=== PATIENT | female | born 1955 | race Caucasian/White ===

== ENCOUNTER 2017-03-30 03:31 | Emergency (ER) | payer MEDICAID ==
[~2017-03-30] VITALS: Ht 154.9 cm; Wt 49.9 kg
[~2017-03-30 03:31] MED LIST: ATEN50TA; DOCU-137; GABA-497; HYDR25TA4; LEVO50TA7; LOSA50TA6; MORP1TAB13; TEMA30CA; ZOLP5TAB5
[2017-03-30 04:04] VITALS: BP 137/76
[2017-03-30] MEDS ORDERED: ONDANSETRON HCL 4 MG/2 ML VIAL IV ONE (04:30)
[2017-03-30] MEDS ORDERED: HYDROmorphone HCL 2 MG/ML VL IV ONE (04:30)
[2017-03-30 05:34] LABS: Basophils # (auto) 0.1 uL; Basophils % (auto) 0.4 % (0.0-2.0); Eosinophils # (auto) 0.1 uL; Eosinophils % (auto) 0.6 % (0.0-7.0); Hematocrit 50.4 % (36.0-46.0); Hemoglobin 16.7 g/dL (12.2-16.2); Lymphocytes # (auto) 1.3 uL; Mean Corpuscular Hemoglobin 30.6 pg (28.0-32.0); Mean Corpuscular Hgb Conc. 33.1 g/dL (32.0-36.0); Mean Corpuscular Volume 92.4 fL (80.0-100.0); Mean Platelet Volume 8.1 fL (7.4-10.4); Monocytes # (auto) 0.8 uL; Monocytes % (auto) 5.6 % (0.0-12.0); Neutrophils # (auto) 12.5 uL; Neutrophils % (auto) 84.4 % (37.0-80.0); Platelet Count (auto) 361 10^3/uL (140-450); Red Cell Distribution Width 15.6 % (11.6-16.0); White Blood Cell 14.8 10^3/uL (4.4-10.8)
[2017-03-30 06:00] LABS: Albumin 2.8 g/dL (3.4-5.0); Anion Gap 12 (5-15); Aspartate Aminotransferase 13 U/L (15-37); BUN/Creatinine Ratio 27.4; Blood Urea Nitrogen 20 mg/dL (7-18); Calcium 7.9 mg/dL (8.5-10.1); Carbon Dioxide 26 mmol/L (21-32); Chloride 100 mmol/L (98-107); GFR African American 104 mL/min; GFR Non-African American 86 mL/min; Glucose 105 mg/dL (74-106); Magnesium 2.1 mg/dL (1.6-2.6); Potassium 3.8 mmol/L (3.5-5.1); Sodium 138 mmol/L (136-145)
[2017-03-30 06:02] LABS: Alkaline Phosphatase 65 U/L (45-117); Bilirubin, Total 0.2 mg/dL (0.2-1.0); Total Protein 6.7 g/dL (6.4-8.2)
[2017-03-30 06:11] LABS: B-Type Natriuretic Peptide 66.77 pg/mL (0-100)
[2017-03-30 06:15] LABS: Temperature: 21.1 C (20.0-25.0)
== END 2017-03-30 06:30 | disposition home or self-care (01) ==
LOC: EDBD 03:31 → ER 03:34
DX: S82.831A Other fracture of upper and lower end of right fibula, initial encounter for closed fracture (principal); J44.9 Chronic obstructive pulmonary disease, unspecified; I11.0 Hypertensive heart disease with heart failure; I50.9 Heart failure, unspecified; F17.210 Nicotine dependence, cigarettes, uncomplicated; Z79.899 Other long term (current) drug therapy; W17.89XA Other fall from one level to another, initial encounter; Y93.89 Activity, other specified; Y92.098 Other place in other non-institutional residence as the place of occurrence of the external cause; Y99.8 Other external cause status
CPT/HCPCS: 36415; 71010; 73552; 73590; 80053; 83735; 83880; 84484; 85025; 96374; 96375; 99285; J1170; J2405

== ENCOUNTER 2017-08-09 19:54 | Emergency (ER) | payer MEDICAID ==
[~2017-08-09] VITALS: Ht 157.5 cm; Wt 103.0 kg
[~2017-08-09 19:54] MED LIST changes: +ALBUAER3 IN; +ASPI81TA27 PO; -ATEN50TA; +ATEN50TA PO; +BACL10TA PO; +CLOP75TA28 PO; -DOCU-137; +DOCU-137 PO; +FURO40TA4 PO; -GABA-497; +GABA-497 PO; +HYDR-4683 PO; -HYDR25TA4; -LEVO50TA7; +LEVO50TA7 PO; -LOSA50TA6; +LOSA50TA6 PO; +LOVA20TA4 PO; -MORP1TAB13; +MORP1TAB13 PO; +OMEP20CA74 PO; +POTA10TA34 PO; -TEMA30CA; -ZOLP5TAB5
[2017-08-10] MEDS ORDERED: HYDROcodone-ACET 7.5/325MG TAB PO ONE (02:30)
[2017-08-10 04:36] VITALS: BP 161/87
== END 2017-08-10 04:57 | disposition home or self-care (01) ==
LOC: EDBD 19:54 → ER 20:04
DX: S92.414A Nondisplaced fracture of proximal phalanx of right great toe, initial encounter for closed fracture (principal); S80.11XA Contusion of right lower leg, initial encounter; S80.12XA Contusion of left lower leg, initial encounter; F17.210 Nicotine dependence, cigarettes, uncomplicated; W01.0XXA Fall on same level from slipping, tripping and stumbling without subsequent striking against object, initial encounter; Y93.89 Activity, other specified; Y99.8 Other external cause status; Y92.89 Other specified places as the place of occurrence of the external cause
CPT/HCPCS: 73030; 73562; 73590; 73630; 93005

== ENCOUNTER 2017-08-11 17:12 | Inpatient (IN) | payer MEDICAID ==
[~2017-08-11] VITALS: Ht 157.5 cm; Wt 106.8 kg
[2017-08-11] MEDS ORDERED: ALBUTEROL SULF 2.5 MG/0.5ML(0.5%) NEB SOLN NEB ONE (17:30)
[2017-08-11] MEDS ORDERED: IPRATROPIUM BROM 0.5 MG/2.5ML INH SOL NEB ONE (17:30)
[2017-08-11] MEDS ORDERED: methylPREDNISolone SOD SUCC 125 MG/2 ML VL IV ONE (17:30)
[2017-08-11] MEDS ORDERED: HYDROcodone-ACET 10/325MG TAB PO ONE (18:00)
[2017-08-11 18:11] LABS: Basophils # (auto) 0.1 uL; Basophils % (auto) 0.8 % (0.0-2.0); Eosinophils # (auto) 0.2 uL; Eosinophils % (auto) 1.4 % (0.0-7.0); Hematocrit 51.3 % (36.0-46.0); Hemoglobin 16.9 g/dL (12.2-16.2); Lymphocytes # (auto) 1.4 uL; Mean Corpuscular Hemoglobin 30.6 pg (28.0-32.0); Mean Corpuscular Hgb Conc. 32.9 g/dL (32.0-36.0); Mean Corpuscular Volume 93.1 fL (80.0-100.0); Neutrophils % (auto) 80.8 % (37.0-80.0); Nucleated Red Blood Cells % 0.1 %; Platelet Count (auto) 306 10^3/uL (140-450); Red Blood Cells 5.51 10^6/uL (4.0-5.20); Red Cell Distribution Width 16.7 % (11.8-14.3); White Blood Cell 13.6 10^3/uL (4.4-10.8)
[2017-08-11 18:32] LABS: BUN/Creatinine Ratio 22.5; Bilirubin, Total 0.5 mg/dL (0.2-1.0); Calcium 8.4 mg/dL (8.5-10.1); Magnesium 2.3 mg/dL (1.6-2.6); Potassium 4.4 mmol/L (3.5-5.1); Total Protein 6.9 g/dL (6.4-8.2)
[2017-08-11] MEDS ORDERED: LORazepam 2MG/ML-1ML VIAL ONE (20:11)
[2017-08-11] MEDS ORDERED: LORazepam 2MG/ML-1ML VIAL IV ONE (20:15)
[2017-08-11] MEDS ORDERED: cefTRIAXone 1GM/50ML D5W 50 ML IV ONE (20:45)
[2017-08-11] MEDS ORDERED: ONDANSETRON HCL 4 MG/2 ML VIAL IV PRN (21:30)
[2017-08-11] MEDS ORDERED: ACETAMINOPHEN 325 MG TAB PO PRN (21:30)
[2017-08-11] MEDS ORDERED: NITROGLYCERIN 0.4 MG SL TAB SL PRN (21:30)
[2017-08-11] MEDS ORDERED: DOCUSATE SOD 100 MG CAP PO PRN (21:30)
[2017-08-11] MEDS ORDERED: MORPHINE SULFATE 10 MG/ML INJ 1ML SDV IV PRN (21:30)
[2017-08-11] MEDS: FAMOTIDINE 20 MG TAB PO SCH (21:55)
[2017-08-11] MEDS: ATORVASTATIN 20 MG TAB PO SCH (21:55)
[2017-08-11] MEDS: ENOXAPARIN SOD 40 MG/0.4 ML SYRINGE SC SCH (21:55)
[2017-08-11] MEDS ORDERED: cloNIDine HCL 0.1 MG TAB ONE (21:57)
[2017-08-11] MEDS: cloNIDine HCL 0.1 MG TAB PO PRN (22:03)
[2017-08-11 22:18] LABS: Urine Bacteria MANY /hpf (None Seen); Urine Blood TRACE /uL (Negative); Urine Mucus FEW (None Seen); Urine Specific Gravity 1.024 (1.001-1.035); Urine WBC 10 /hpf (0 - 5)
[2017-08-11 22:35] VITALS: BP 140/87
[2017-08-12] MEDS ORDERED: FUROSEMIDE 20 MG/2 ML VIAL IV ONE
[2017-08-12] MEDS: TEMAZEPAM 15 MG CAP PO PRN ×2 (01:42→22:28)
[2017-08-12] MEDS: HYDROcodone-ACET 5/325MG TAB PO PRN ×4 (01:42→22:21)
[2017-08-12 04:00] VITALS: BP 159/65
[2017-08-12] MEDS ORDERED: ENOXAPARIN SOD 100 MG/1 ML SYRINGE SC ONE (05:00)
[2017-08-12] MEDS: FUROSEMIDE 40 MG TAB PO SCH ×2 (06:25→17:48)
[2017-08-12] MEDS: LEVOTHYROXINE SODIUM 50 MCG TAB PO SCH (06:31)
[2017-08-12 07:13] LABS: Basophils # (auto) 0.1 uL; Basophils % (auto) 0.7 % (0.0-2.0); Eosinophils # (auto) 0 uL; Hematocrit 52.1 % (36.0-46.0); Lymphocytes # (auto) 0.7 uL; Lymphocytes % (auto) 5.6 % (10.0-50.0); Mean Corpuscular Hemoglobin 30.1 pg (28.0-32.0); Mean Corpuscular Hgb Conc. 32.6 g/dL (32.0-36.0); Mean Corpuscular Volume 92.3 fL (80.0-100.0); Monocytes # (auto) 0.6 uL; Monocytes % (auto) 4.8 % (0.0-12.0); Neutrophils # (auto) 10.6 uL; Neutrophils % (auto) 88.9 % (37.0-80.0); Nucleated Red Blood Cells % 0.3 %; Platelet Count (auto) 303 10^3/uL (140-450); Red Blood Cells 5.65 10^6/uL (4.0-5.20); Red Cell Distribution Width 16.3 % (11.8-14.3); White Blood Cell 11.9 10^3/uL (4.4-10.8)
[2017-08-12 07:24] LABS: BUN/Creatinine Ratio 26.4; Bilirubin, Total 0.5 mg/dL (0.2-1.0); Calcium 8.6 mg/dL (8.5-10.1); Potassium 4.2 mmol/L (3.5-5.1)
[2017-08-12 08:00] VITALS: BP_SYST 163; BP_SYST 167; BP_DIAS 83
[2017-08-12] MEDS: FAMOTIDINE 20 MG TAB PO SCH ×2 (09:13→22:21)
[2017-08-12] MEDS: methylPREDNISolone SOD SUCC 125 MG/2 ML VL IV SCH ×2 (09:14→22:19)
[2017-08-12] MEDS: POTASSIUM CHL 10 Meq TABLET PO SCH (09:17)
[2017-08-12] MEDS: CLOPIDOGREL BISULFATE 75 MG TAB PO SCH (09:17)
[2017-08-12] MEDS: LOSARTAN POTASSIUM 50 MG TAB PO SCH (09:17)
[2017-08-12] MEDS: ATENOLOL 50 MG TAB PO SCH (09:18)
[2017-08-12] MEDS: cefTRIAXone 1GM/50ML D5W 50 ML IV SCH (09:18)
[2017-08-12] MEDS ORDERED: IOHEXOL 350 MG/ML 100ML IJ ONE (09:44)
[2017-08-12] MEDS: ENOXAPARIN SOD 40 MG/0.4 ML SYRINGE SC SCH (10:00)
[2017-08-12] MEDS ORDERED: LORazepam 2MG/ML-1ML VIAL IV ONE (10:30)
[2017-08-12 12:00] VITALS: BP 157/69
[2017-08-12 15:00] VITALS: BP 141/110
[2017-08-12 18:20] VITALS: BP 135/71
[2017-08-12] MEDS ORDERED: ETOMIDATE (2MG/ML) 20ML VIAL IV ONE (18:20)
[2017-08-12 22:00] VITALS: BP 169/76
[2017-08-12] MEDS: ATORVASTATIN 20 MG TAB PO SCH (22:20)
[2017-08-12] MEDS: cloNIDine HCL 0.1 MG TAB PO PRN (22:20)
[2017-08-13] VITALS (7 sets, daily range): BP systolic 119–139; BP diastolic 47–79
[2017-08-13] MEDS: LEVOTHYROXINE SODIUM 50 MCG TAB PO SCH (05:28)
[2017-08-13] MEDS: FUROSEMIDE 40 MG TAB PO SCH ×2 (05:40→17:54)
[2017-08-13] MEDS: HYDROcodone-ACET 5/325MG TAB PO PRN ×3 (05:41→22:40)
[2017-08-13 07:02] LABS: Eosinophils # (auto) 0 uL; Lymphocytes # (auto) 0.7 uL; Red Cell Distribution Width 16.2 % (11.8-14.3)
[2017-08-13 07:06] LABS: Basophils # (auto) 0.1 uL; Basophils % (auto) 0.4 % (0.0-2.0); Hematocrit 54.6 % (36.0-46.0); Hemoglobin 18.2 g/dL (12.2-16.2); Lymphocytes % (auto) 5.4 % (10.0-50.0); Mean Corpuscular Hemoglobin 30.5 pg (28.0-32.0); Mean Corpuscular Hgb Conc. 33.3 g/dL (32.0-36.0); Mean Corpuscular Volume 91.7 fL (80.0-100.0); Monocytes # (auto) 0.4 uL; Monocytes % (auto) 3.2 % (0.0-12.0); Neutrophils # (auto) 11.1 uL; Nucleated Red Blood Cells % 0.2 %; Platelet Count (auto) 310 10^3/uL (140-450); Red Blood Cells 5.95 10^6/uL (4.0-5.20); White Blood Cell 12.2 10^3/uL (4.4-10.8)
[2017-08-13 07:24] LABS: BUN/Creatinine Ratio 42.2; Calcium 9.2 mg/dL (8.5-10.1); Magnesium 2.5 mg/dL (1.6-2.6); Potassium 4.1 mmol/L (3.5-5.1)
[2017-08-13] MEDS: IPRATROPIUM BROM 0.5 MG/2.5ML INH SOL NEB PRN ×3 (08:29→22:15)
[2017-08-13] MEDS: ALBUTEROL SULF 2.5 MG/0.5ML(0.5%) NEB SOLN NEB PRN ×3 (08:29→22:15)
[2017-08-13] MEDS: CLOPIDOGREL BISULFATE 75 MG TAB PO SCH (10:00)
[2017-08-13] MEDS: LOSARTAN POTASSIUM 50 MG TAB PO SCH (10:12)
[2017-08-13] MEDS: FAMOTIDINE 20 MG TAB PO SCH ×2 (10:13→22:59)
[2017-08-13] MEDS: POTASSIUM CHL 10 Meq TABLET PO SCH (10:13)
[2017-08-13] MEDS: ATENOLOL 50 MG TAB PO SCH (10:14)
[2017-08-13] MEDS: methylPREDNISolone SOD SUCC 125 MG/2 ML VL IV SCH ×2 (10:15→22:59)
[2017-08-13] MEDS: ENOXAPARIN SOD 40 MG/0.4 ML SYRINGE SC SCH (10:17)
[2017-08-13] MEDS: cefTRIAXone 1GM/50ML D5W 50 ML IV SCH (10:18)
[2017-08-13] MEDS ORDERED: ASPirin 81 mg TAB PO ONE (13:15)
[2017-08-13] MEDS: AZITHROMYCIN 500MG/ 250ML 250 ML IV SCH (19:43)
[2017-08-13] MEDS: TEMAZEPAM 15 MG CAP PO PRN (21:30)
[2017-08-13] MEDS: ATORVASTATIN 20 MG TAB PO SCH (22:59)
[2017-08-14 05:00] VITALS: BP 141/75
[2017-08-14 06:08] LABS: Basophils # (auto) 0 uL; Basophils % (auto) 0.2 % (0.0-2.0); Eosinophils # (auto) 0 uL; Hematocrit 54.7 % (36.0-46.0); Hemoglobin 18.7 g/dL (12.2-16.2); Lymphocytes # (auto) 0.5 uL; Lymphocytes % (auto) 4.5 % (10.0-50.0); Mean Corpuscular Hemoglobin 30.9 pg (28.0-32.0); Mean Corpuscular Hgb Conc. 34.2 g/dL (32.0-36.0); Mean Corpuscular Volume 90.5 fL (80.0-100.0); Monocytes # (auto) 0.2 uL; Monocytes % (auto) 1.9 % (0.0-12.0); Neutrophils # (auto) 11.2 uL; Neutrophils % (auto) 93.4 % (37.0-80.0); Nucleated Red Blood Cells % 0.3 %; Platelet Count (auto) 307 10^3/uL (140-450); Red Blood Cells 6.04 10^6/uL (4.0-5.20)
[2017-08-14 06:32] LABS: Calcium 8.8 mg/dL (8.5-10.1); Magnesium 2.8 mg/dL (1.6-2.6)
[2017-08-14] MEDS: FUROSEMIDE 40 MG TAB PO SCH (06:37)
[2017-08-14] MEDS: LEVOTHYROXINE SODIUM 50 MCG TAB PO SCH (06:37)
[2017-08-14] MEDS: ALBUTEROL SULF 2.5 MG/0.5ML(0.5%) NEB SOLN NEB PRN (08:19)
[2017-08-14] MEDS: IPRATROPIUM BROM 0.5 MG/2.5ML INH SOL NEB PRN (08:19)
[2017-08-14] MEDS: cefTRIAXone 1GM/50ML D5W 50 ML IV SCH (08:56)
[2017-08-14 09:21] VITALS: BP 145/74
[2017-08-14] MEDS: ENOXAPARIN SOD 40 MG/0.4 ML SYRINGE SC SCH (10:00)
[2017-08-14] MEDS: AZITHROMYCIN 500MG/ 250ML 250 ML IV SCH (10:00)
[2017-08-14] MEDS: ATENOLOL 50 MG TAB PO SCH (10:00)
[2017-08-14] MEDS: ASPirin 81 mg TAB PO SCH (10:00)
[2017-08-14] MEDS: FAMOTIDINE 20 MG TAB PO SCH ×2 (10:00→22:20)
[2017-08-14] MEDS: methylPREDNISolone SOD SUCC 125 MG/2 ML VL IV SCH (10:00)
[2017-08-14] MEDS: CLOPIDOGREL BISULFATE 75 MG TAB PO SCH (10:00)
[2017-08-14] MEDS: LOSARTAN POTASSIUM 50 MG TAB PO SCH (10:01)
[2017-08-14] MEDS: POTASSIUM CHL 10 Meq TABLET PO SCH ×2 (10:01→22:19)
[2017-08-14] MEDS: HYDROcodone-ACET 5/325MG TAB PO PRN (10:08)
[2017-08-14] MEDS ORDERED: LORazepam 2MG/ML-1ML VIAL IV ONE (11:00)
[2017-08-14] MEDS ORDERED: SODIUM CHLORIDE 0.9% 1,000 ML IV SCH (11:00)
[2017-08-14] MEDS ORDERED: IOHEXOL 300 MG/ML 100ML BOTTLE IJ ONE (11:48)
[2017-08-14 12:43] VITALS: BP 135/69
[2017-08-14] MEDS ORDERED: ALBUTEROL SULF 2.5 MG/0.5ML(0.5%) NEB SOLN NEB SCH (14:00)
[2017-08-14] MEDS: methylPREDNISolone SOD SUCC 40 MG/ML VL IV SCH ×2 (14:00→19:55)
[2017-08-14] MEDS ORDERED: IPRATROPIUM BROM 0.5 MG/2.5ML INH SOL NEB SCH (14:00)
[2017-08-14] MEDS ORDERED: BUDESONIDE (INHALATION) 0.5 MG/2 ML NEB NEB SCH ×2 (14:00→22:00)
[2017-08-14] MEDS: HYDROcodone-ACET 10/325MG TAB PO PRN (14:44)
[2017-08-14 17:14] VITALS: BP 130/70
[2017-08-14] MEDS: FUROSEMIDE 20 MG/2 ML VIAL IV SCH (17:26)
[2017-08-14] MEDS: ALBUTEROL SULF 2.5 MG/0.5ML(0.5%) NEB SOLN NEB SCH (18:52)
[2017-08-14] MEDS: IPRATROPIUM BROM 0.5 MG/2.5ML INH SOL NEB SCH (18:52)
[2017-08-14] MEDS: BUDESONIDE (INHALATION) 0.5 MG/2 ML NEB NEB SCH (18:59)
[2017-08-14] MEDS: TEMAZEPAM 15 MG CAP PO PRN (19:55)
[2017-08-14 22:00] VITALS: BP 126/55
[2017-08-14] MEDS: ATORVASTATIN 20 MG TAB PO SCH (22:19)
[2017-08-15] MEDS: IPRATROPIUM BROM 0.5 MG/2.5ML INH SOL NEB SCH ×5 (00:24→19:02)
[2017-08-15] MEDS: ALBUTEROL SULF 2.5 MG/0.5ML(0.5%) NEB SOLN NEB SCH ×5 (00:25→19:02)
[2017-08-15] MEDS: methylPREDNISolone SOD SUCC 40 MG/ML VL IV SCH ×4 (02:15→21:04)
[2017-08-15 05:00] VITALS: BP 154/81
[2017-08-15 06:09] LABS: Eosinophils # (auto) 0 uL; Mean Corpuscular Hemoglobin 30.5 pg (28.0-32.0); Red Cell Distribution Width 16.2 % (11.8-14.3)
[2017-08-15 06:13] LABS: Basophils # (auto) 0 uL; Basophils % (auto) 0.3 % (0.0-2.0); Hemoglobin 19.1 g/dL (12.2-16.2); Lymphocytes # (auto) 0.5 uL; Lymphocytes % (auto) 4.4 % (10.0-50.0); Mean Corpuscular Hgb Conc. 33.4 g/dL (32.0-36.0); Mean Corpuscular Volume 91.2 fL (80.0-100.0); Monocytes # (auto) 0.4 uL; Monocytes % (auto) 3.1 % (0.0-12.0); Neutrophils # (auto) 10.6 uL; Neutrophils % (auto) 92.2 % (37.0-80.0); Nucleated Red Blood Cells % 0.1 %; Platelet Count (auto) 327 10^3/uL (140-450); Red Blood Cells 6.28 10^6/uL (4.0-5.20); White Blood Cell 11.5 10^3/uL (4.4-10.8)
[2017-08-15 06:15] LABS: Hematocrit 57.3 % (36.0-46.0)
[2017-08-15 06:20] LABS: BUN/Creatinine Ratio 46.8; Calcium 8.9 mg/dL (8.5-10.1)
[2017-08-15] MEDS: FUROSEMIDE 20 MG/2 ML VIAL IV SCH ×2 (06:25→16:59)
[2017-08-15] MEDS: LEVOTHYROXINE SODIUM 50 MCG TAB PO SCH (06:25)
[2017-08-15] MEDS: HYDROcodone-ACET 10/325MG TAB PO PRN ×4 (06:26→22:09)
[2017-08-15] MEDS: BUDESONIDE (INHALATION) 0.5 MG/2 ML NEB NEB SCH ×2 (06:33→22:00)
[2017-08-15] MEDS: cefTRIAXone 1GM/50ML D5W 50 ML IV SCH (08:57)
[2017-08-15 09:05] VITALS: BP 158/73
[2017-08-15] MEDS: AZITHROMYCIN 500MG/ 250ML 250 ML IV SCH (10:00)
[2017-08-15] MEDS: ASPirin 81 mg TAB PO SCH (10:00)
[2017-08-15] MEDS: ATENOLOL 50 MG TAB PO SCH (10:00)
[2017-08-15] MEDS: FAMOTIDINE 20 MG TAB PO SCH ×2 (10:00→22:08)
[2017-08-15] MEDS: POTASSIUM CHL 10 Meq TABLET PO SCH ×2 (10:00→22:08)
[2017-08-15] MEDS: ENOXAPARIN SOD 40 MG/0.4 ML SYRINGE SC SCH (10:00)
[2017-08-15] MEDS: CLOPIDOGREL BISULFATE 75 MG TAB PO SCH (10:00)
[2017-08-15 16:35] VITALS: BP 124/60
[2017-08-15 22:00] VITALS: BP 130/75
[2017-08-15] MEDS: ATORVASTATIN 20 MG TAB PO SCH (22:08)
[2017-08-16] MEDS: ALBUTEROL SULF 2.5 MG/0.5ML(0.5%) NEB SOLN NEB SCH ×4 (00:40→19:11)
[2017-08-16] MEDS: IPRATROPIUM BROM 0.5 MG/2.5ML INH SOL NEB SCH ×4 (00:41→19:11)
[2017-08-16] MEDS: TEMAZEPAM 15 MG CAP PO PRN ×2 (00:52→23:50)
[2017-08-16] MEDS: methylPREDNISolone SOD SUCC 40 MG/ML VL IV SCH ×4 (04:29→20:24)
[2017-08-16] MEDS: HYDROcodone-ACET 10/325MG TAB PO PRN ×6 (04:36→22:40)
[2017-08-16 05:00] VITALS: BP 159/88
[2017-08-16] MEDS: BUDESONIDE (INHALATION) 0.5 MG/2 ML NEB NEB SCH ×2 (06:21→19:11)
[2017-08-16] MEDS: FUROSEMIDE 20 MG/2 ML VIAL IV SCH ×2 (06:26→17:57)
[2017-08-16] MEDS: LEVOTHYROXINE SODIUM 50 MCG TAB PO SCH (06:33)
[2017-08-16] MEDS: cefTRIAXone 1GM/50ML D5W 50 ML IV SCH (08:54)
[2017-08-16 09:28] VITALS: BP 140/74
[2017-08-16] MEDS: AZITHROMYCIN 500MG/ 250ML 250 ML IV SCH (10:00)
[2017-08-16] MEDS: ATENOLOL 50 MG TAB PO SCH (10:00)
[2017-08-16] MEDS: CLOPIDOGREL BISULFATE 75 MG TAB PO SCH (10:00)
[2017-08-16] MEDS: FAMOTIDINE 20 MG TAB PO SCH ×2 (10:51→22:41)
[2017-08-16] MEDS: POTASSIUM CHL 10 Meq TABLET PO SCH ×2 (10:51→22:39)
[2017-08-16] MEDS: ASPirin 81 mg TAB PO SCH (10:51)
[2017-08-16] MEDS: ENOXAPARIN SOD 40 MG/0.4 ML SYRINGE SC SCH (10:54)
[2017-08-16 12:30] VITALS: BP 147/69
[2017-08-16] MEDS ORDERED: GABA-497 PO (13:25)
[2017-08-16] MEDS ORDERED: BACL10TA PO (13:25)
[2017-08-16 17:08] VITALS: BP 145/59
[2017-08-16 22:00] VITALS: BP 138/71
[2017-08-16] MEDS: ATORVASTATIN 20 MG TAB PO SCH (22:40)
[2017-08-16 23:03] VITALS: BP 138/71
[2017-08-17] MEDS: methylPREDNISolone SOD SUCC 40 MG/ML VL IV SCH ×4 (04:18→20:16)
[2017-08-17] MEDS: HYDROcodone-ACET 10/325MG TAB PO PRN ×5 (04:20→22:37)
[2017-08-17 04:52] VITALS: BP 150/78
[2017-08-17] MEDS: ALBUTEROL SULF 2.5 MG/0.5ML(0.5%) NEB SOLN NEB SCH ×4 (05:52→19:28)
[2017-08-17] MEDS: IPRATROPIUM BROM 0.5 MG/2.5ML INH SOL NEB SCH ×4 (05:52→19:28)
[2017-08-17] MEDS: BUDESONIDE (INHALATION) 0.5 MG/2 ML NEB NEB SCH ×2 (05:53→19:28)
[2017-08-17] MEDS: FUROSEMIDE 20 MG/2 ML VIAL IV SCH ×2 (06:29→18:00)
[2017-08-17] MEDS: LEVOTHYROXINE SODIUM 50 MCG TAB PO SCH (06:30)
[2017-08-17] MEDS ORDERED: SODIUM CHLORIDE LOCK 0 ML ONE ×2 (08:18→08:48)
[2017-08-17] MEDS ORDERED: BENZOCAINE (DENTAL) 20 % SPRAY 60ML MT ONE (08:18)
[2017-08-17 08:19] LABS: INR 1.05 (0.9-1.15); Partial Thromboplastin Time 24.2 sec (22.64-33.71); Prothrombin Time 11.4 sec (9.37-12.3)
[2017-08-17] MEDS ORDERED: LIDOCAINE HCL 2% TOP JELLY 5ML TOP ONE (08:19)
[2017-08-17] MEDS ORDERED: EPINEPHrine HCL 1 MG/1 ML AMP ONE (08:19)
[2017-08-17] MEDS ORDERED: MIDAZOLAM HCL 5 MG/ML-1ML VIAL ONE (08:49)
[2017-08-17 09:00] VITALS: BP 160/87
[2017-08-17] MEDS: AZITHROMYCIN 500MG/ 250ML 250 ML IV SCH (10:00)
[2017-08-17] MEDS: CLOPIDOGREL BISULFATE 75 MG TAB PO SCH (10:00)
[2017-08-17] MEDS: ENOXAPARIN SOD 40 MG/0.4 ML SYRINGE SC SCH (10:00)
[2017-08-17] MEDS: POTASSIUM CHL 10 Meq TABLET PO SCH ×2 (10:10→22:37)
[2017-08-17] MEDS: cefTRIAXone 1GM/50ML D5W 50 ML IV SCH (10:10)
[2017-08-17] MEDS: FAMOTIDINE 20 MG TAB PO SCH ×2 (10:11→22:36)
[2017-08-17] MEDS: ASPirin 81 mg TAB PO SCH (10:11)
[2017-08-17] MEDS: ATENOLOL 50 MG TAB PO SCH (10:12)
[2017-08-17 12:26] VITALS: BP 150/95
[2017-08-17 16:51] VITALS: BP 117/53
[2017-08-17 22:00] VITALS: BP 138/54
[2017-08-17] MEDS: ATORVASTATIN 20 MG TAB PO SCH (22:36)
[2017-08-18] VITALS (7 sets, daily range): BP systolic 125–147; BP diastolic 60–83
[2017-08-18] MEDS: IPRATROPIUM BROM 0.5 MG/2.5ML INH SOL NEB SCH ×4 (00:45→20:06)
[2017-08-18] MEDS: ALBUTEROL SULF 2.5 MG/0.5ML(0.5%) NEB SOLN NEB SCH ×4 (00:46→20:06)
[2017-08-18] MEDS: TEMAZEPAM 15 MG CAP PO PRN (00:48)
[2017-08-18] MEDS: methylPREDNISolone SOD SUCC 40 MG/ML VL IV SCH ×4 (02:34→20:02)
[2017-08-18] MEDS: HYDROcodone-ACET 10/325MG TAB PO PRN ×3 (04:23→21:56)
[2017-08-18] MEDS: BUDESONIDE (INHALATION) 0.5 MG/2 ML NEB NEB SCH ×2 (05:55→20:07)
[2017-08-18 06:16] LABS: Basophils # (auto) 0 uL; Basophils % (auto) 0.2 % (0.0-2.0); Eosinophils # (auto) 0 uL; Lymphocytes # (auto) 0.7 uL; Mean Corpuscular Hgb Conc. 32.7 g/dL (32.0-36.0)
[2017-08-18 06:18] LABS: Hemoglobin 19.1 g/dL (12.2-16.2); Lymphocytes % (auto) 5.8 % (10.0-50.0); Mean Corpuscular Hemoglobin 29.9 pg (28.0-32.0); Mean Corpuscular Volume 91.5 fL (80.0-100.0); Monocytes # (auto) 0.7 uL; Monocytes % (auto) 5.6 % (0.0-12.0); Neutrophils # (auto) 11.1 uL; Neutrophils % (auto) 88.4 % (37.0-80.0); Nucleated Red Blood Cells % 0.4 %; Platelet Count (auto) 328 10^3/uL (140-450); Red Blood Cells 6.38 10^6/uL (4.0-5.20); Red Cell Distribution Width 15.5 % (11.8-14.3); White Blood Cell 12.6 10^3/uL (4.4-10.8)
[2017-08-18 06:19] LABS: Hematocrit 58.4 % (36.0-46.0)
[2017-08-18] MEDS: LEVOTHYROXINE SODIUM 50 MCG TAB PO SCH (06:30)
[2017-08-18] MEDS: FUROSEMIDE 20 MG/2 ML VIAL IV SCH ×2 (06:30→17:51)
[2017-08-18 06:36] LABS: Calcium 8.8 mg/dL (8.5-10.1); Potassium 4.7 mmol/L (3.5-5.1)
[2017-08-18] MEDS: cefTRIAXone 1GM/50ML D5W 50 ML IV SCH (09:00)
[2017-08-18] MEDS ORDERED: SODIUM CHLORIDE LOCK 20 ML ONE (09:06)
[2017-08-18] MEDS ORDERED: LIDOCAINE 2%HCL (LOCAL ANESTH.) INJ 20ML MDV ONE (09:06)
[2017-08-18] MEDS ORDERED: EPINEPHrine HCL 1 MG/1 ML AMP ONE (09:06)
[2017-08-18] MEDS ORDERED: LIDOCAINE HCL 2% TOP JELLY 5ML TOP ONE (09:06)
[2017-08-18] MEDS ORDERED: BENZOCAINE (DENTAL) 20 % SPRAY 60ML MT ONE (09:07)
[2017-08-18] MEDS: FAMOTIDINE 20 MG TAB PO SCH ×2 (10:00→21:55)
[2017-08-18] MEDS: ASPirin 81 mg TAB PO SCH (10:00)
[2017-08-18] MEDS: CLOPIDOGREL BISULFATE 75 MG TAB PO SCH (10:00)
[2017-08-18] MEDS: ATENOLOL 50 MG TAB PO SCH (10:00)
[2017-08-18] MEDS: AZITHROMYCIN 500MG/ 250ML 250 ML IV SCH (10:00)
[2017-08-18] MEDS: ENOXAPARIN SOD 40 MG/0.4 ML SYRINGE SC SCH (10:00)
[2017-08-18] MEDS: POTASSIUM CHL 10 Meq TABLET PO SCH ×2 (10:00→21:55)
[2017-08-18] MEDS ORDERED: SUCCINYLCHOLINE CHLORIDE 20 MG/ML 10ML VIAL IV ONE (10:27)
[2017-08-18] MEDS ORDERED: LIDOCAINE HCL 2 % INJ 2ML MPF NEB ONE (10:30)
[2017-08-18] MEDS ORDERED: fentaNYL CITRATE 100 MCG/2 ML VL ONE (10:32)
[2017-08-18] MEDS ORDERED: MIDAZOLAM HCL 1MG/1ML-2 ML VIAL ONE (10:32)
[2017-08-18] MEDS ORDERED: DEXAMETHASONE SOD PHOS 10MG/1ML VIAL INJ ONE (10:38)
[2017-08-18] MEDS ORDERED: PROPOFOL 10 MG/ML 20 ML IV ONE (10:38)
[2017-08-18] MEDS ORDERED: LABETALOL HCL 5 MG/ML 4ML SYRINGE IV ONE (11:01)
[2017-08-18] MEDS ORDERED: MORPHINE SULF INJ 2 MG/ML SYRINGE 1ML IV PRN (12:00)
[2017-08-18] MEDS ORDERED: MIDAZOLAM HCL 1MG/1ML-2 ML VIAL IV PRN (12:00)
[2017-08-18] MEDS ORDERED: ONDANSETRON HCL 4 MG/2 ML VIAL IV ONE (12:00)
[2017-08-18] MEDS ORDERED: hydrALAZINE HCL 20 MG/ML VL IV PRN (12:00)
[2017-08-18] MEDS ORDERED: KETOROLAC TROMETH 30 MG/ML 1ML VIAL IV ONE (12:00)
[2017-08-18] MEDS ORDERED: ePHEDrine SULFATE 50 MG/ML AMP IV PRN (12:00)
[2017-08-18] MEDS ORDERED: LABETALOL HCL 5 MG/ML 4ML SYRINGE IV PRN (12:00)
[2017-08-18] MEDS ORDERED: HYDROmorphone HCL 2 MG/ML VL IV PRN (12:00)
[2017-08-18] MEDS: FLUCONAZOLE 100MG/50ML 50 ML IV SCH (13:00)
[2017-08-18] MEDS: ATORVASTATIN 20 MG TAB PO SCH (21:55)
[2017-08-19] MEDS: IPRATROPIUM BROM 0.5 MG/2.5ML INH SOL NEB SCH ×3 (00:56→11:46)
[2017-08-19] MEDS: ALBUTEROL SULF 2.5 MG/0.5ML(0.5%) NEB SOLN NEB SCH ×3 (00:56→11:46)
[2017-08-19] MEDS: methylPREDNISolone SOD SUCC 40 MG/ML VL IV SCH ×3 (02:19→14:00)
[2017-08-19] MEDS: HYDROcodone-ACET 10/325MG TAB PO PRN ×4 (02:23→14:16)
[2017-08-19 05:00] VITALS: BP 143/71
[2017-08-19] MEDS: BUDESONIDE (INHALATION) 0.5 MG/2 ML NEB NEB SCH (06:17)
[2017-08-19] MEDS: FUROSEMIDE 20 MG/2 ML VIAL IV SCH (06:19)
[2017-08-19] MEDS: LEVOTHYROXINE SODIUM 50 MCG TAB PO SCH (06:19)
[2017-08-19] MEDS ORDERED: IPR002IS HHN (08:40)
[2017-08-19 09:00] VITALS: BP 154/66
[2017-08-19] MEDS: ENOXAPARIN SOD 40 MG/0.4 ML SYRINGE SC SCH (09:05)
[2017-08-19] MEDS: cefTRIAXone 1GM/50ML D5W 50 ML IV SCH (09:05)
[2017-08-19] MEDS: POTASSIUM CHL 10 Meq TABLET PO SCH (09:06)
[2017-08-19] MEDS: CLOPIDOGREL BISULFATE 75 MG TAB PO SCH (09:06)
[2017-08-19] MEDS: FAMOTIDINE 20 MG TAB PO SCH (09:06)
[2017-08-19] MEDS: ASPirin 81 mg TAB PO SCH (09:06)
[2017-08-19] MEDS ORDERED: ATENOLOL 25 MG TAB PO SCH (10:00)
[2017-08-19] MEDS: AZITHROMYCIN 500MG/ 250ML 250 ML IV SCH (10:00)
[2017-08-19] MEDS: FLUCONAZOLE 100MG/50ML 50 ML IV SCH (10:00)
[2017-08-19 10:37] VITALS: BP 154/66
[2017-08-19 13:00] VITALS: BP 131/69
== END 2017-08-19 15:00 | disposition home health service (06) | DRG 120 ==
LOC: EDBD 17:12 → ER 17:21 → TELE 17:22 → TELE-EAST 22:33 → DOU IN ICU 08-12 01:55 → TELE-EAST 08-12 14:45
PROVIDERS: ADMIT Nurse Practitioner; ATTEND Internal Medicine
PROC: 5A09357 Assistance with Respiratory Ventilation, Less than 24 Consecutive Hours, Continuous Positive Airway Pressure (ICD-10-PCS; principal; 2017-08-11)
PROC: 0B968ZZ Drainage of Right Lower Lobe Bronchus, Via Natural or Artificial Opening Endoscopic (ICD-10-PCS; 2017-08-19)
PROC: 0BC68ZZ Extirpation of Matter from Right Lower Lobe Bronchus, Via Natural or Artificial Opening Endoscopic (ICD-10-PCS; 2017-08-19)
DX: J96.21 Acute and chronic respiratory failure with hypoxia (principal); J18.1 Lobar pneumonia, unspecified organism; T17.890A Other foreign object in other parts of respiratory tract causing asphyxiation, initial encounter; I11.0 Hypertensive heart disease with heart failure; I50.42 Chronic combined systolic (congestive) and diastolic (congestive) heart failure; J44.0 Chronic obstructive pulmonary disease with (acute) lower respiratory infection; D75.1 Secondary polycythemia; F03.90 Unspecified dementia, unspecified severity, without behavioral disturbance, psychotic disturbance, mood disturbance, and anxiety; Z68.41 Body mass index [BMI] 40.0-44.9, adult; J44.1 Chronic obstructive pulmonary disease with (acute) exacerbation; N39.0 Urinary tract infection, site not specified; I25.10 Atherosclerotic heart disease of native coronary artery without angina pectoris; F17.210 Nicotine dependence, cigarettes, uncomplicated; E78.5 Hyperlipidemia, unspecified; E78.00 Pure hypercholesterolemia, unspecified; E66.2 Morbid (severe) obesity with alveolar hypoventilation; E03.9 Hypothyroidism, unspecified; M19.90 Unspecified osteoarthritis, unspecified site; N28.1 Cyst of kidney, acquired; N28.89 Other specified disorders of kidney and ureter; S82.891A Other fracture of right lower leg, initial encounter for closed fracture; S82.63XA Displaced fracture of lateral malleolus of unspecified fibula, initial encounter for closed fracture; Z80.8 Family history of malignant neoplasm of other organs or systems; Z99.81 Dependence on supplemental oxygen; Z80.49 Family history of malignant neoplasm of other genital organs; Z95.5 Presence of coronary angioplasty implant and graft; I25.2 Old myocardial infarction; Z90.710 Acquired absence of both cervix and uterus; Z90.49 Acquired absence of other specified parts of digestive tract
CPT/HCPCS: 36415; 36600; 51702; 71010; 71020; 71250; 71275; 73590; 73610; 74178; 76775; 80048; 80053; 81001; 82805; 83605; 83735; 83880; 84484; 85025; 85379; 85610; 85730; 87040; 87070; 87075; 93005; 93970; 94640; 94660; 94761; 96365; 96375; 97110; 97163; 97530; J0171; J0330; J0696; J1100; J1450; J2250; J2704; J3490

== ENCOUNTER 2018-05-14 18:11 | Inpatient (IN) | payer MEDICAID ==
[~2018-05-14] VITALS: Ht 170.2 cm; Wt 103.9 kg
[~2018-05-14 18:11] MED LIST changes: -GABA-497 PO; +GABA300C10 PO; +IPR002IS HHN; -POTA10TA34 PO; +POTA1TAB61 PO
[2018-05-14 18:55] LABS: Basophils # (auto) 0.1 uL; Basophils % (auto) 0.8 % (0.0-2.0); Eosinophils # (auto) 0.2 uL; Eosinophils % (auto) 1.9 % (0.0-7.0); Hematocrit 43.3 % (36.0-46.0); Hemoglobin 14.4 g/dL (12.2-16.2); Lymphocytes # (auto) 1.7 uL; Lymphocytes % (auto) 15.6 % (10.0-50.0); Mean Corpuscular Hemoglobin 30.9 pg (28.0-32.0); Mean Corpuscular Hgb Conc. 33.3 g/dL (32.0-36.0); Mean Corpuscular Volume 92.8 fL (80.0-100.0); Monocytes # (auto) 0.7 uL; Monocytes % (auto) 6.7 % (0.0-12.0); Nucleated Red Blood Cells % 0.1 %; Platelet Count (auto) 341 10^3/uL (140-450); Red Blood Cells 4.66 10^6/uL (4.0-5.20); Red Cell Distribution Width 14.7 % (11.8-14.3); White Blood Cell 10.7 10^3/uL (4.4-10.8)
[2018-05-14] MEDS ORDERED: FUROSEMIDE 40 MG/4 ML VIAL IV ONE (19:00)
[2018-05-14] MEDS ORDERED: methylPREDNISolone SOD SUCC 125 MG/2 ML VL IV ONE (19:00)
[2018-05-14] MEDS ORDERED: cefTRIAXone SOD 1,000 MG VL IM ONE (19:00)
[2018-05-14 19:17] LABS: Alanine Aminotransferase 12 U/L (13-56); Albumin 3.2 g/dL (3.4-5.0); Alkaline Phosphatase 77 U/L (45-117); Anion Gap 6 (5-15); Aspartate Aminotransferase 5 U/L (15-37); BUN/Creatinine Ratio 14.3; Bilirubin, Total 0.2 mg/dL (0.2-1.0); Blood Urea Nitrogen 10 mg/dL (7-18); Calcium 8.3 mg/dL (8.5-10.1); Chloride 91 mmol/L (98-107); GFR African American 109 mL/min; GFR Non-African American 90 mL/min; Glucose 109 mg/dL (74-106); Magnesium 2.6 mg/dL (1.6-2.6); Potassium 3.6 mmol/L (3.5-5.1); Sodium 140 mmol/L (136-145); Total Protein 6.9 g/dL (6.4-8.2)
[2018-05-14] MEDS ORDERED: ALBUTEROL SULF 2.5 MG/0.5ML(0.5%) NEB SOLN ONE (19:19)
[2018-05-14] MEDS ORDERED: IPRATROPIUM BROM 0.5 MG/2.5ML INH SOL ONE (19:19)
[2018-05-14 19:50] LABS: Carbon Dioxide 43 mmol/L (21-32)
[2018-05-14] MEDS ORDERED: MAGNESIUM SULFATE 1GM/100ML 100 ML IV SCH (20:30)
[2018-05-14] MEDS ORDERED: PROPOFOL 10 MG/ML 20 ML IV ONE (22:15)
[2018-05-14] MEDS ORDERED: SUCCINYLCHOLINE CHLORIDE 20 MG/ML 10ML VIAL IV ONE (22:15)
[2018-05-14] MEDS ORDERED: PROPOFOL 100 ML IV ONE (22:18)
[2018-05-14 22:43] LABS: Urine Bacteria NONE SEEN /hpf (None Seen); Urine Blood TRACE /uL (Negative); Urine Hyaline Cast FEW /lpf (0 - 2); Urine Mucus FEW (None Seen); Urine Specific Gravity 1.011 (1.001-1.035); Urine WBC 1 /hpf (0 - 5)
[2018-05-14 22:54] VITALS: BP 112/73
[2018-05-14] MEDS: MIDAZOLAM DRIP 50 mg/50mL 50 ML IV SCH (23:55)
[2018-05-14] MEDS: PROPOFOL 100 ML IV SCH (23:55)
[2018-05-15] VITALS (90 sets, daily range): BP systolic 13–175; BP diastolic 41–135
[2018-05-15] MEDS ORDERED: LORazepam 2MG/ML-1ML VIAL IV PRN (01:30)
[2018-05-15] MEDS ORDERED: ONDANSETRON HCL 4 MG/2 ML VIAL IV PRN (01:30)
[2018-05-15] MEDS ORDERED: IPRATROPIUM BROM 0.5 MG/2.5ML INH SOL ONE (02:05)
[2018-05-15] MEDS ORDERED: ALBUTEROL SULF 2.5 MG/0.5ML(0.5%) NEB SOLN ONE (02:05)
[2018-05-15] MEDS ORDERED: ACETAMINOPHEN 650 mg PER 20 mL UD PO ONE (02:30)
[2018-05-15] MEDS: DOXYCYCLINE 100MG/250ML 250 ML IV SCH ×2 (05:28→18:01)
[2018-05-15] MEDS: MIDAZOLAM DRIP 50 mg/50mL 50 ML IV SCH ×3 (05:57→16:54)
[2018-05-15] MEDS: IPRATROPIUM BROM 0.5 MG/2.5ML INH SOL NEB SCH ×5 (06:03→22:30)
[2018-05-15] MEDS: ALBUTEROL SULF 2.5 MG/0.5ML(0.5%) NEB SOLN NEB SCH ×5 (06:03→22:30)
[2018-05-15 07:21] LABS: Basophils # (auto) 0.1 uL; Basophils % (auto) 0.9 % (0.0-2.0); Eosinophils # (auto) 0 uL; Eosinophils % (auto) 0.1 % (0.0-7.0); Hematocrit 40.4 % (36.0-46.0); Hemoglobin 13.3 g/dL (12.2-16.2); Lymphocytes # (auto) 0.6 uL; Lymphocytes % (auto) 5.1 % (10.0-50.0); Mean Corpuscular Hemoglobin 30.6 pg (28.0-32.0); Mean Corpuscular Volume 92.9 fL (80.0-100.0); Monocytes # (auto) 0.1 uL; Monocytes % (auto) 0.7 % (0.0-12.0); Neutrophils # (auto) 10.1 uL; Neutrophils % (auto) 93.2 % (37.0-80.0); Nucleated Red Blood Cells % 0.1 %; Platelet Count (auto) 319 10^3/uL (140-450); Red Blood Cells 4.35 10^6/uL (4.0-5.20); Red Cell Distribution Width 14.7 % (11.8-14.3); White Blood Cell 10.9 10^3/uL (4.4-10.8)
[2018-05-15 07:46] LABS: BUN/Creatinine Ratio 15.9; Potassium 3.2 mmol/L (3.5-5.1)
[2018-05-15] MEDS: PROPOFOL 100 ML IV SCH ×3 (08:20→21:25)
[2018-05-15] MEDS: cefTRIAXone 1GM/10ml IVPUSH 10 ML IV SCH (10:16)
[2018-05-15] MEDS: POTASSIUM CHL 20MEQ/100ML 100 ML IV SCH ×2 (10:16→12:17)
[2018-05-15] MEDS: PANTOPRAZOLE 40 MG/10 ML VIAL IV SCH (10:16)
[2018-05-15] MEDS: ENOXAPARIN SOD 40 MG/0.4 ML SYRINGE SC SCH (10:17)
[2018-05-15] MEDS ORDERED: cloNIDine HCL 0.1 MG TAB PO PRN (14:30)
[2018-05-15] MEDS ORDERED: DEXTROSE (50%) 50ML SYRG IV PRN (14:45)
[2018-05-15] MEDS: methylPREDNISolone SOD SUCC 40 MG/ML VL IV SCH ×2 (15:14→23:26)
[2018-05-15] MEDS: LISINOPRIL 20 MG TAB PO SCH (15:15)
[2018-05-15] MEDS: fentaNYL Drip 2500mCg/250mlNS 250 ML IV SCH (17:58)
[2018-05-15] MEDS: FUROSEMIDE 40 MG/4 ML VIAL IV SCH (18:01)
[2018-05-15] MEDS: ACCU-CHEK COMFORT CURVE STRIP VI SCH ×2 (18:01→23:40)
[2018-05-15] MEDS: InsuLIN REG 1unit/0.01ml Soln (100units/ml) SC SCH ×2 (18:05→23:46)
[2018-05-15] MEDS ORDERED: ACETAMINOPHEN 650 mg PER 20 mL UD GT PRN (22:45)
[2018-05-15] MEDS ORDERED: POTASSIUM EFFERVESENT TAB 25 MEQ GT ONE (22:45)
[2018-05-15] MEDS: CARVEDILOL 3.125 MG TAB PO SCH (23:26)
[2018-05-16] VITALS (105 sets, daily range): BP systolic 92–166; BP diastolic 46–103
[2018-05-16] MEDS: PROPOFOL 100 ML IV SCH ×3 (01:57→21:24)
[2018-05-16] MEDS: ALBUTEROL SULF 2.5 MG/0.5ML(0.5%) NEB SOLN NEB SCH ×6 (02:13→22:19)
[2018-05-16] MEDS: IPRATROPIUM BROM 0.5 MG/2.5ML INH SOL NEB SCH ×6 (02:14→22:19)
[2018-05-16] MEDS: POTASSIUM EFFERVESENT TAB 25 MEQ GT SCH ×2 (02:22→11:20)
[2018-05-16 05:06] LABS: Basophils # (auto) 0.1 uL; Basophils % (auto) 0.5 % (0.0-2.0); Eosinophils # (auto) 0 uL; Hematocrit 39.9 % (36.0-46.0); Hemoglobin 12.9 g/dL (12.2-16.2); Lymphocytes # (auto) 0.8 uL; Lymphocytes % (auto) 5.3 % (10.0-50.0); Mean Corpuscular Hemoglobin 29.6 pg (28.0-32.0); Mean Corpuscular Hgb Conc. 32.3 g/dL (32.0-36.0); Mean Corpuscular Volume 91.4 fL (80.0-100.0); Monocytes # (auto) 0.4 uL; Monocytes % (auto) 2.9 % (0.0-12.0); Neutrophils # (auto) 13.4 uL; Neutrophils % (auto) 91.3 % (37.0-80.0); Platelet Count (auto) 309 10^3/uL (140-450); Red Blood Cells 4.37 10^6/uL (4.0-5.20); White Blood Cell 14.7 10^3/uL (4.4-10.8)
[2018-05-16 05:27] LABS: BUN/Creatinine Ratio 26.9; Calcium 8.4 mg/dL (8.5-10.1); Magnesium 2.4 mg/dL (1.6-2.6); Potassium 3.5 mmol/L (3.5-5.1)
[2018-05-16] MEDS: ACCU-CHEK COMFORT CURVE STRIP VI SCH ×4 (05:40→23:57)
[2018-05-16] MEDS: InsuLIN REG 1unit/0.01ml Soln (100units/ml) SC SCH ×4 (05:47→23:59)
[2018-05-16] MEDS: methylPREDNISolone SOD SUCC 40 MG/ML VL IV SCH ×3 (05:47→21:32)
[2018-05-16] MEDS: FUROSEMIDE 40 MG/4 ML VIAL IV SCH ×2 (05:48→17:44)
[2018-05-16] MEDS: DOXYCYCLINE 100MG/250ML 250 ML IV SCH ×2 (06:41→17:45)
[2018-05-16] MEDS ORDERED: LISINOPRIL 20 MG TAB PO SCH (10:00)
[2018-05-16] MEDS: cefTRIAXone 1GM/10ml IVPUSH 10 ML IV SCH (10:38)
[2018-05-16] MEDS: PANTOPRAZOLE 40 MG/10 ML VIAL IV SCH (10:38)
[2018-05-16] MEDS: CARVEDILOL 3.125 MG TAB PO SCH ×2 (10:39→21:33)
[2018-05-16] MEDS: LISINOPRIL 20 MG TAB PO SCH (10:40)
[2018-05-16] MEDS: ENOXAPARIN SOD 40 MG/0.4 ML SYRINGE SC SCH (10:40)
[2018-05-16] MEDS: fentaNYL Drip 2500mCg/250mlNS 250 ML IV SCH (15:28)
[2018-05-16] MEDS: MIDAZOLAM DRIP 50 mg/50mL 50 ML IV SCH (21:24)
[2018-05-17] VITALS (105 sets, daily range): BP systolic 89–149; BP diastolic 44–67
[2018-05-17] MEDS: IPRATROPIUM BROM 0.5 MG/2.5ML INH SOL NEB SCH ×6 (02:41→21:56)
[2018-05-17] MEDS: ALBUTEROL SULF 2.5 MG/0.5ML(0.5%) NEB SOLN NEB SCH ×6 (02:41→21:56)
[2018-05-17] MEDS: PROPOFOL 100 ML IV SCH ×4 (03:07→23:53)
[2018-05-17 03:42] LABS: Basophils # (auto) 0 uL; Basophils % (auto) 0.1 % (0.0-2.0); Eosinophils # (auto) 0 uL; Hematocrit 38.5 % (36.0-46.0); Hemoglobin 12.6 g/dL (12.2-16.2); Lymphocytes # (auto) 0.7 uL; Lymphocytes % (auto) 5.4 % (10.0-50.0); Mean Corpuscular Hemoglobin 29.7 pg (28.0-32.0); Mean Corpuscular Hgb Conc. 32.7 g/dL (32.0-36.0); Mean Corpuscular Volume 90.9 fL (80.0-100.0); Monocytes # (auto) 0.4 uL; Monocytes % (auto) 2.9 % (0.0-12.0); Neutrophils # (auto) 11.8 uL; Neutrophils % (auto) 91.6 % (37.0-80.0); Platelet Count (auto) 305 10^3/uL (140-450); Red Blood Cells 4.23 10^6/uL (4.0-5.20); White Blood Cell 12.9 10^3/uL (4.4-10.8)
[2018-05-17 04:02] LABS: BUN/Creatinine Ratio 33.9; Calcium 8.1 mg/dL (8.5-10.1); Potassium 3.4 mmol/L (3.5-5.1)
[2018-05-17] MEDS: FUROSEMIDE 40 MG/4 ML VIAL IV SCH ×2 (06:21→18:13)
[2018-05-17] MEDS: DOXYCYCLINE 100MG/250ML 250 ML IV SCH ×2 (06:21→18:13)
[2018-05-17] MEDS: ACCU-CHEK COMFORT CURVE STRIP VI SCH ×3 (06:21→18:13)
[2018-05-17] MEDS: InsuLIN REG 1unit/0.01ml Soln (100units/ml) SC SCH ×3 (06:28→18:18)
[2018-05-17] MEDS: methylPREDNISolone SOD SUCC 40 MG/ML VL IV SCH ×3 (06:29→22:00)
[2018-05-17] MEDS: cefTRIAXone 1GM/10ml IVPUSH 10 ML IV SCH (09:10)
[2018-05-17] MEDS: PANTOPRAZOLE 40 MG/10 ML VIAL IV SCH (09:10)
[2018-05-17] MEDS: ENOXAPARIN SOD 40 MG/0.4 ML SYRINGE SC SCH (09:10)
[2018-05-17] MEDS: POTASSIUM EFFERVESENT TAB 25 MEQ GT SCH (09:11)
[2018-05-17] MEDS: CARVEDILOL 3.125 MG TAB PO SCH ×2 (09:11→22:00)
[2018-05-17] MEDS: LISINOPRIL 20 MG TAB PO SCH (09:11)
[2018-05-17] MEDS: MIDAZOLAM DRIP 50 mg/50mL 50 ML IV SCH ×2 (10:12→23:30)
[2018-05-17] MEDS ORDERED: Jevity 1.2 Cal/Fiber 1 Liter GT SCH (10:45)
[2018-05-17 13:41] LABS: INR 0.98 (0.9-1.15); Prothrombin Time 10.5 sec (9.27-12.13)
[2018-05-17] MEDS ORDERED: LIDOCAINE 1% (LOCAL ANESTH.) PF 5ml SDV ID ONE (16:45)
[2018-05-17] MEDS: fentaNYL Drip 2500mCg/250mlNS 250 ML IV SCH (18:32)
[2018-05-17] MEDS: SODIUM CHLOR 0.9% PF (SALINE LOCK) 10ML VIAL/SYR IV SCH (22:00)
[2018-05-18] VITALS (103 sets, daily range): BP systolic 84–140; BP diastolic 42–68
[2018-05-18] MEDS: ALBUTEROL SULF 2.5 MG/0.5ML(0.5%) NEB SOLN NEB SCH ×6 (02:18→22:24)
[2018-05-18] MEDS: IPRATROPIUM BROM 0.5 MG/2.5ML INH SOL NEB SCH ×6 (02:18→22:24)
[2018-05-18 03:41] LABS: Basophils # (auto) 0 uL; Basophils % (auto) 0.2 % (0.0-2.0); Eosinophils # (auto) 0 uL; Hematocrit 39.5 % (36.0-46.0); Hemoglobin 12.9 g/dL (12.2-16.2); Lymphocytes # (auto) 0.6 uL; Lymphocytes % (auto) 5.2 % (10.0-50.0); Mean Corpuscular Hemoglobin 29.8 pg (28.0-32.0); Mean Corpuscular Hgb Conc. 32.6 g/dL (32.0-36.0); Mean Corpuscular Volume 91.4 fL (80.0-100.0); Monocytes # (auto) 0.4 uL; Monocytes % (auto) 3.6 % (0.0-12.0); Neutrophils # (auto) 10.8 uL; Platelet Count (auto) 270 10^3/uL (140-450); Red Blood Cells 4.32 10^6/uL (4.0-5.20); Red Cell Distribution Width 15.1 % (11.8-14.3); White Blood Cell 11.9 10^3/uL (4.4-10.8)
[2018-05-18 04:01] LABS: Albumin 2.8 g/dL (3.4-5.0); Potassium 3.7 mmol/L (3.5-5.1)
[2018-05-18 04:04] LABS: BUN/Creatinine Ratio 45.9
[2018-05-18 04:15] LABS: Bilirubin, Total 0.2 mg/dL (0.2-1.0); Total Protein 5.8 g/dL (6.4-8.2)
[2018-05-18] MEDS: methylPREDNISolone SOD SUCC 40 MG/ML VL IV SCH ×3 (06:00→22:01)
[2018-05-18] MEDS: FUROSEMIDE 40 MG/4 ML VIAL IV SCH ×2 (06:00→18:01)
[2018-05-18] MEDS: InsuLIN REG 1unit/0.01ml Soln (100units/ml) SC SCH ×4 (06:00→18:01)
[2018-05-18] MEDS: ACCU-CHEK COMFORT CURVE STRIP VI SCH ×4 (06:00→18:01)
[2018-05-18] MEDS: DOXYCYCLINE 100MG/250ML 250 ML IV SCH (07:00)
[2018-05-18] MEDS: cefTRIAXone 1GM/10ml IVPUSH 10 ML IV SCH (09:43)
[2018-05-18] MEDS: SODIUM CHLOR 0.9% PF (SALINE LOCK) 10ML VIAL/SYR IV SCH ×2 (09:44→22:02)
[2018-05-18] MEDS: ENOXAPARIN SOD 40 MG/0.4 ML SYRINGE SC SCH (09:44)
[2018-05-18] MEDS: PANTOPRAZOLE 40 MG/10 ML VIAL IV SCH (09:44)
[2018-05-18] MEDS: CARVEDILOL 3.125 MG TAB PO SCH ×2 (09:45→22:00)
[2018-05-18] MEDS: MIDAZOLAM DRIP 50 mg/50mL 50 ML IV SCH ×2 (13:17→20:20)
[2018-05-18] MEDS: POTASSIUM EFFERVESENT TAB 25 MEQ GT SCH (14:14)
[2018-05-18] MEDS: fentaNYL Drip 2500mCg/250mlNS 250 ML IV SCH (22:16)
[2018-05-19] VITALS (104 sets, daily range): BP systolic 83–191; BP diastolic 41–114
[2018-05-19] MEDS: InsuLIN REG 1unit/0.01ml Soln (100units/ml) SC SCH ×4 (01:01→17:36)
[2018-05-19] MEDS: ACCU-CHEK COMFORT CURVE STRIP VI SCH ×4 (01:02→17:36)
[2018-05-19] MEDS: ALBUTEROL SULF 2.5 MG/0.5ML(0.5%) NEB SOLN NEB SCH ×6 (02:23→23:11)
[2018-05-19] MEDS: IPRATROPIUM BROM 0.5 MG/2.5ML INH SOL NEB SCH ×6 (02:23→23:11)
[2018-05-19 03:57] LABS: Basophils # (auto) 0 uL; Basophils % (auto) 0.2 % (0.0-2.0); Eosinophils # (auto) 0 uL; Hematocrit 43.4 % (36.0-46.0); Lymphocytes # (auto) 0.6 uL; Lymphocytes % (auto) 4.8 % (10.0-50.0); Mean Corpuscular Hemoglobin 29.3 pg (28.0-32.0); Mean Corpuscular Hgb Conc. 32.2 g/dL (32.0-36.0); Mean Corpuscular Volume 91.1 fL (80.0-100.0); Monocytes # (auto) 0.6 uL; Monocytes % (auto) 4.2 % (0.0-12.0); Neutrophils # (auto) 12.1 uL; Neutrophils % (auto) 90.8 % (37.0-80.0); Platelet Count (auto) 289 10^3/uL (140-450); Red Blood Cells 4.76 10^6/uL (4.0-5.20); Red Cell Distribution Width 15.4 % (11.8-14.3); White Blood Cell 13.4 10^3/uL (4.4-10.8)
[2018-05-19 04:17] LABS: Calcium 8.3 mg/dL (8.5-10.1); Potassium 3.9 mmol/L (3.5-5.1)
[2018-05-19 04:24] LABS: BUN/Creatinine Ratio 46.8
[2018-05-19] MEDS: methylPREDNISolone SOD SUCC 40 MG/ML VL IV SCH ×3 (05:20→21:53)
[2018-05-19] MEDS: FUROSEMIDE 40 MG/4 ML VIAL IV SCH ×2 (05:21→17:36)
[2018-05-19] MEDS: MIDAZOLAM DRIP 50 mg/50mL 50 ML IV SCH ×4 (05:30→21:23)
[2018-05-19] MEDS: cefTRIAXone 1GM/10ml IVPUSH 10 ML IV SCH (09:02)
[2018-05-19] MEDS: ENOXAPARIN SOD 40 MG/0.4 ML SYRINGE SC SCH (10:00)
[2018-05-19] MEDS: CARVEDILOL 3.125 MG TAB PO SCH ×2 (10:00→21:53)
[2018-05-19] MEDS: POTASSIUM EFFERVESENT TAB 25 MEQ GT SCH (10:00)
[2018-05-19] MEDS: PANTOPRAZOLE 40 MG/10 ML VIAL IV SCH (10:00)
[2018-05-19] MEDS: SODIUM CHLOR 0.9% PF (SALINE LOCK) 10ML VIAL/SYR IV SCH ×2 (10:00→21:53)
[2018-05-19] MEDS: DEXMEDETOMIDINE HCL 400 MCG in D5W 5% 96 ML IV SCH (14:16)
[2018-05-19] MEDS ORDERED: PIPERACILLIN-TAZOB 3.375GM 100 ML IV ONE (15:15)
[2018-05-19] MEDS: fentaNYL Drip 2500mCg/250mlNS 250 ML IV SCH ×2 (15:28→21:22)
[2018-05-19] MEDS: PROPOFOL 100 ML IV SCH (23:25)
[2018-05-20] VITALS (92 sets, daily range): BP systolic 90–169; BP diastolic 36–90
[2018-05-20] MEDS: ACCU-CHEK COMFORT CURVE STRIP VI SCH ×4 (00:27→17:38)
[2018-05-20] MEDS: InsuLIN REG 1unit/0.01ml Soln (100units/ml) SC SCH ×4 (00:27→17:38)
[2018-05-20] MEDS: PIPERACILLIN-TAZOB 3.375GM 100 ML IV SCH ×4 (00:27→17:37)
[2018-05-20] MEDS: MIDAZOLAM DRIP 50 mg/50mL 50 ML IV SCH (00:53)
[2018-05-20] MEDS: ALBUTEROL SULF 2.5 MG/0.5ML(0.5%) NEB SOLN NEB SCH ×6 (02:34→22:23)
[2018-05-20] MEDS: IPRATROPIUM BROM 0.5 MG/2.5ML INH SOL NEB SCH ×6 (02:34→22:23)
[2018-05-20 04:03] LABS: Basophils # (auto) 0 uL; Basophils % (auto) 0.1 % (0.0-2.0); Eosinophils # (auto) 0 uL; Hematocrit 41.9 % (36.0-46.0); Hemoglobin 13.6 g/dL (12.2-16.2); Lymphocytes # (auto) 0.6 uL; Lymphocytes % (auto) 5.1 % (10.0-50.0); Mean Corpuscular Hemoglobin 29.6 pg (28.0-32.0); Mean Corpuscular Hgb Conc. 32.5 g/dL (32.0-36.0); Mean Corpuscular Volume 90.9 fL (80.0-100.0); Monocytes # (auto) 0.3 uL; Monocytes % (auto) 2.7 % (0.0-12.0); Neutrophils # (auto) 11.4 uL; Neutrophils % (auto) 92.1 % (37.0-80.0); Platelet Count (auto) 256 10^3/uL (140-450); Red Blood Cells 4.61 10^6/uL (4.0-5.20); White Blood Cell 12.4 10^3/uL (4.4-10.8)
[2018-05-20 04:23] LABS: BUN/Creatinine Ratio 44.6; Calcium 8.1 mg/dL (8.5-10.1)
[2018-05-20] MEDS: methylPREDNISolone SOD SUCC 40 MG/ML VL IV SCH ×3 (05:28→22:22)
[2018-05-20] MEDS: FUROSEMIDE 40 MG/4 ML VIAL IV SCH (05:28)
[2018-05-20] MEDS: DEXMEDETOMIDINE HCL 400 MCG in D5W 5% 96 ML IV SCH (08:23)
[2018-05-20] MEDS: POTASSIUM EFFERVESENT TAB 25 MEQ GT SCH (10:00)
[2018-05-20] MEDS: CARVEDILOL 3.125 MG TAB PO SCH (10:00)
[2018-05-20] MEDS: SODIUM CHLOR 0.9% PF (SALINE LOCK) 10ML VIAL/SYR IV SCH ×2 (10:00→22:22)
[2018-05-20] MEDS: PANTOPRAZOLE 40 MG/10 ML VIAL IV SCH (10:00)
[2018-05-20] MEDS: ENOXAPARIN SOD 40 MG/0.4 ML SYRINGE SC SCH (10:00)
[2018-05-20] MEDS: GABAPENTIN 300 MG CAP PO SCH ×2 (15:41→22:19)
[2018-05-20] MEDS ORDERED: CLOPIDOGREL BISULFATE 75 MG TAB PO ONE (15:45)
[2018-05-20] MEDS ORDERED: ATENOLOL 50 MG TAB PO ONE (15:45)
[2018-05-20] MEDS ORDERED: ASPirin 81 mg TAB PO ONE (15:45)
[2018-05-20] MEDS ORDERED: LOSARTAN POTASSIUM 25 MG TAB PO ONE (16:00)
[2018-05-20] MEDS: FUROSEMIDE 40 MG TAB PO SCH (17:37)
[2018-05-20] MEDS ORDERED: IPRATROPIUM BROM 0.5 MG/2.5ML INH SOL NEB SCH ×2 (18:00→22:00)
[2018-05-20] MEDS: PRAVASTATIN SODIUM 20 MG TAB PO SCH (22:20)
[2018-05-20] MEDS: FAMOTIDINE 20 MG TAB PO SCH (22:21)
[2018-05-20] MEDS: HYDROcodone-ACET 5/325MG TAB PO PRN (22:21)
[2018-05-21] VITALS (16 sets, daily range): BP systolic 116–145; BP diastolic 55–79
[2018-05-21] MEDS: ALBUTEROL SULF 2.5 MG/0.5ML(0.5%) NEB SOLN NEB SCH ×6 (02:00→22:25)
[2018-05-21] MEDS: IPRATROPIUM BROM 0.5 MG/2.5ML INH SOL NEB SCH ×6 (02:00→22:25)
[2018-05-21 04:55] LABS: Basophils # (auto) 0.2 uL; Eosinophils # (auto) 0 uL; Hematocrit 45.5 % (36.0-46.0); Hemoglobin 15.2 g/dL (12.2-16.2); Lymphocytes # (auto) 0.7 uL; Lymphocytes % (auto) 4.1 % (10.0-50.0); Mean Corpuscular Hemoglobin 30.4 pg (28.0-32.0); Mean Corpuscular Hgb Conc. 33.5 g/dL (32.0-36.0); Mean Corpuscular Volume 90.8 fL (80.0-100.0); Monocytes # (auto) 0.4 uL; Monocytes % (auto) 2.4 % (0.0-12.0); Neutrophils # (auto) 15.8 uL; Neutrophils % (auto) 92.5 % (37.0-80.0); Platelet Count (auto) 316 10^3/uL (140-450); Red Blood Cells 5.01 10^6/uL (4.0-5.20); Red Cell Distribution Width 14.9 % (11.8-14.3); White Blood Cell 17.1 10^3/uL (4.4-10.8)
[2018-05-21 05:13] LABS: Calcium 8.2 mg/dL (8.5-10.1); Potassium 4.1 mmol/L (3.5-5.1)
[2018-05-21 05:15] LABS: BUN/Creatinine Ratio 41.3
[2018-05-21 05:17] LABS: Bilirubin, Total 0.4 mg/dL (0.2-1.0); Total Protein 6.2 g/dL (6.4-8.2)
[2018-05-21] MEDS: HYDROcodone-ACET 5/325MG TAB PO PRN ×3 (05:30→21:50)
[2018-05-21] MEDS: ACCU-CHEK COMFORT CURVE STRIP VI SCH ×4 (05:35→17:03)
[2018-05-21] MEDS: InsuLIN REG 1unit/0.01ml Soln (100units/ml) SC SCH ×4 (05:36→17:03)
[2018-05-21] MEDS: methylPREDNISolone SOD SUCC 40 MG/ML VL IV SCH ×3 (05:50→21:41)
[2018-05-21] MEDS: GABAPENTIN 300 MG CAP PO SCH ×3 (05:52→21:41)
[2018-05-21] MEDS: FUROSEMIDE 40 MG TAB PO SCH ×2 (05:52→19:02)
[2018-05-21] MEDS: LEVOTHYROXINE SODIUM 50 MCG TAB PO SCH (05:53)
[2018-05-21] MEDS: PIPERACILLIN-TAZOB 3.375GM 100 ML IV SCH ×4 (06:21→18:59)
[2018-05-21] MEDS: POTASSIUM EFFERVESENT TAB 25 MEQ GT SCH (10:44)
[2018-05-21] MEDS: ENOXAPARIN SOD 40 MG/0.4 ML SYRINGE SC SCH (10:44)
[2018-05-21] MEDS: SODIUM CHLOR 0.9% PF (SALINE LOCK) 10ML VIAL/SYR IV SCH ×2 (10:45→21:42)
[2018-05-21] MEDS: LOSARTAN POTASSIUM 25 MG TAB PO SCH (10:45)
[2018-05-21] MEDS: ASPirin 81 mg TAB PO SCH (10:46)
[2018-05-21] MEDS: FAMOTIDINE 20 MG TAB PO SCH ×2 (10:46→21:41)
[2018-05-21] MEDS: ATENOLOL 50 MG TAB PO SCH (10:47)
[2018-05-21] MEDS: CLOPIDOGREL BISULFATE 75 MG TAB PO SCH (10:47)
[2018-05-21] MEDS: PRAVASTATIN SODIUM 20 MG TAB PO SCH (21:41)
[2018-05-22] MEDS: PIPERACILLIN-TAZOB 3.375GM 100 ML IV SCH ×5 (00:07→23:55)
[2018-05-22] MEDS: ACCU-CHEK COMFORT CURVE STRIP VI SCH ×4 (00:15→17:56)
[2018-05-22] MEDS: InsuLIN REG 1unit/0.01ml Soln (100units/ml) SC SCH ×4 (00:23→18:00)
[2018-05-22] MEDS: IPRATROPIUM BROM 0.5 MG/2.5ML INH SOL NEB SCH ×6 (02:45→22:09)
[2018-05-22] MEDS: ALBUTEROL SULF 2.5 MG/0.5ML(0.5%) NEB SOLN NEB SCH ×6 (02:46→22:09)
[2018-05-22 05:00] VITALS: BP 156/76
[2018-05-22] MEDS: GABAPENTIN 300 MG CAP PO SCH ×3 (06:15→21:32)
[2018-05-22] MEDS: methylPREDNISolone SOD SUCC 40 MG/ML VL IV SCH (06:15)
[2018-05-22] MEDS: LEVOTHYROXINE SODIUM 50 MCG TAB PO SCH (06:16)
[2018-05-22] MEDS: FUROSEMIDE 40 MG TAB PO SCH ×2 (06:16→17:56)
[2018-05-22 09:00] VITALS: BP 140/57
[2018-05-22] MEDS: POTASSIUM EFFERVESENT TAB 25 MEQ GT SCH (10:37)
[2018-05-22] MEDS: ENOXAPARIN SOD 40 MG/0.4 ML SYRINGE SC SCH (10:39)
[2018-05-22] MEDS: FAMOTIDINE 20 MG TAB PO SCH ×2 (10:39→21:31)
[2018-05-22] MEDS: CLOPIDOGREL BISULFATE 75 MG TAB PO SCH (10:39)
[2018-05-22] MEDS: ASPirin 81 mg TAB PO SCH (10:39)
[2018-05-22] MEDS: ATENOLOL 50 MG TAB PO SCH (10:40)
[2018-05-22] MEDS: LOSARTAN POTASSIUM 25 MG TAB PO SCH (10:40)
[2018-05-22] MEDS: SODIUM CHLOR 0.9% PF (SALINE LOCK) 10ML VIAL/SYR IV SCH ×2 (10:42→21:32)
[2018-05-22 13:02] VITALS: BP 146/77
[2018-05-22] MEDS ORDERED: TEMAZEPAM 15 MG CAP PO PRN (14:45)
[2018-05-22 16:13] VITALS: BP 128/70
[2018-05-22] MEDS: PRAVASTATIN SODIUM 20 MG TAB PO SCH (21:32)
[2018-05-22 22:00] VITALS: BP 103/48
[2018-05-23] MEDS: ACCU-CHEK COMFORT CURVE STRIP VI SCH ×4 (00:09→18:35)
[2018-05-23] MEDS: ALBUTEROL SULF 2.5 MG/0.5ML(0.5%) NEB SOLN NEB SCH ×6 (02:13→22:25)
[2018-05-23] MEDS: IPRATROPIUM BROM 0.5 MG/2.5ML INH SOL NEB SCH ×6 (02:13→22:25)
[2018-05-23 05:00] VITALS: BP 113/56
[2018-05-23] MEDS: InsuLIN REG 1unit/0.01ml Soln (100units/ml) SC SCH ×4 (06:00→18:00)
[2018-05-23] MEDS: LEVOTHYROXINE SODIUM 50 MCG TAB PO SCH (06:55)
[2018-05-23] MEDS: FUROSEMIDE 40 MG TAB PO SCH ×2 (06:57→18:07)
[2018-05-23] MEDS: GABAPENTIN 300 MG CAP PO SCH ×3 (06:58→21:59)
[2018-05-23] MEDS: PIPERACILLIN-TAZOB 3.375GM 100 ML IV SCH ×3 (06:59→17:56)
[2018-05-23] MEDS: LOSARTAN POTASSIUM 25 MG TAB PO SCH (10:00)
[2018-05-23] MEDS: ATENOLOL 50 MG TAB PO SCH (10:00)
[2018-05-23] MEDS: POTASSIUM EFFERVESENT TAB 25 MEQ GT SCH (10:23)
[2018-05-23] MEDS: FAMOTIDINE 20 MG TAB PO SCH ×2 (10:24→22:00)
[2018-05-23] MEDS: HYDROcodone-ACET 5/325MG TAB PO PRN ×2 (10:24→22:00)
[2018-05-23] MEDS: ASPirin 81 mg TAB PO SCH (10:24)
[2018-05-23] MEDS: CLOPIDOGREL BISULFATE 75 MG TAB PO SCH (10:24)
[2018-05-23] MEDS: ENOXAPARIN SOD 40 MG/0.4 ML SYRINGE SC SCH (10:25)
[2018-05-23] MEDS: SODIUM CHLOR 0.9% PF (SALINE LOCK) 10ML VIAL/SYR IV SCH ×2 (10:28→21:59)
[2018-05-23 21:23] VITALS: BP 110/46
[2018-05-23] MEDS: PRAVASTATIN SODIUM 20 MG TAB PO SCH (21:59)
[2018-05-24] MEDS: PIPERACILLIN-TAZOB 3.375GM 100 ML IV SCH ×3 (00:40→11:42)
[2018-05-24] MEDS: IPRATROPIUM BROM 0.5 MG/2.5ML INH SOL NEB SCH ×4 (01:50→14:10)
[2018-05-24] MEDS: ALBUTEROL SULF 2.5 MG/0.5ML(0.5%) NEB SOLN NEB SCH ×4 (01:50→14:11)
[2018-05-24] MEDS: HYDROcodone-ACET 5/325MG TAB PO PRN ×2 (04:52→11:41)
[2018-05-24 05:00] VITALS: BP_SYST 109; BP_SYST 134; BP_DIAS 53; BP_DIAS 68
[2018-05-24] MEDS: InsuLIN REG 1unit/0.01ml Soln (100units/ml) SC SCH ×3 (06:00→11:42)
[2018-05-24] MEDS: FUROSEMIDE 40 MG TAB PO SCH (06:01)
[2018-05-24] MEDS: GABAPENTIN 300 MG CAP PO SCH (06:02)
[2018-05-24] MEDS: ACCU-CHEK COMFORT CURVE STRIP VI SCH ×3 (06:02→11:42)
[2018-05-24] MEDS: LEVOTHYROXINE SODIUM 50 MCG TAB PO SCH (06:20)
[2018-05-24 07:35] LABS: Basophils # (auto) 0.1 uL; Basophils % (auto) 0.5 % (0.0-2.0); Eosinophils # (auto) 0.4 uL; Eosinophils % (auto) 2.9 % (0.0-7.0); Hematocrit 46.7 % (36.0-46.0); Hemoglobin 15.3 g/dL (12.2-16.2); Mean Corpuscular Hemoglobin 29.6 pg (28.0-32.0); Mean Corpuscular Hgb Conc. 32.7 g/dL (32.0-36.0); Mean Corpuscular Volume 90.4 fL (80.0-100.0); Monocytes # (auto) 1.5 uL; Monocytes % (auto) 10.1 % (0.0-12.0); Neutrophils # (auto) 10.4 uL; Neutrophils % (auto) 72.5 % (37.0-80.0); Platelet Count (auto) 323 10^3/uL (140-450); Red Blood Cells 5.16 10^6/uL (4.0-5.20); Red Cell Distribution Width 15.2 % (11.8-14.3); White Blood Cell 14.4 10^3/uL (4.4-10.8)
[2018-05-24 07:40] LABS: BUN/Creatinine Ratio 30.6; Potassium 3.3 mmol/L (3.5-5.1)
[2018-05-24 08:44] VITALS: BP 90/55
[2018-05-24] MEDS: ASPirin 81 mg TAB PO SCH (10:19)
[2018-05-24] MEDS: CLOPIDOGREL BISULFATE 75 MG TAB PO SCH (10:19)
[2018-05-24] MEDS: FAMOTIDINE 20 MG TAB PO SCH (10:19)
[2018-05-24] MEDS: POTASSIUM EFFERVESENT TAB 25 MEQ GT SCH (10:19)
[2018-05-24] MEDS: ENOXAPARIN SOD 40 MG/0.4 ML SYRINGE SC SCH (10:20)
[2018-05-24] MEDS: SODIUM CHLOR 0.9% PF (SALINE LOCK) 10ML VIAL/SYR IV SCH (10:26)
[2018-05-24 13:00] VITALS: BP 93/54
[2018-05-24 14:12] VITALS: BP 93/54
[2018-05-24 17:00] VITALS: BP 117/67
== END 2018-05-24 17:25 | disposition hospice, home (50) | DRG 720 ==
LOC: EDBD 18:11 → ER 18:13 → TELE 18:14 → ICU WEST 05-15 04:37 → TELE-WESTW 05-21 05:26
PROVIDERS: ADMIT Nurse Practitioner Family; ATTEND Hospitalist
PROC: 5A1955Z Respiratory Ventilation, Greater than 96 Consecutive Hours (ICD-10-PCS; principal; 2018-05-14)
PROC: 0BH17EZ Insertion of Endotracheal Airway into Trachea, Via Natural or Artificial Opening (ICD-10-PCS; 2018-05-14)
PROC: 5A09357 Assistance with Respiratory Ventilation, Less than 24 Consecutive Hours, Continuous Positive Airway Pressure (ICD-10-PCS; 2018-05-14)
PROC: 02HV33Z Insertion of Infusion Device into Superior Vena Cava, Percutaneous Approach (ICD-10-PCS; 2018-05-17)
DX: A41.9 Sepsis, unspecified organism (principal); J96.21 Acute and chronic respiratory failure with hypoxia; G93.41 Metabolic encephalopathy; I50.43 Acute on chronic combined systolic (congestive) and diastolic (congestive) heart failure; J13 Pneumonia due to Streptococcus pneumoniae; J44.0 Chronic obstructive pulmonary disease with (acute) lower respiratory infection; I11.0 Hypertensive heart disease with heart failure; F03.90 Unspecified dementia, unspecified severity, without behavioral disturbance, psychotic disturbance, mood disturbance, and anxiety; Z99.81 Dependence on supplemental oxygen; J44.1 Chronic obstructive pulmonary disease with (acute) exacerbation; E44.1 Mild protein-calorie malnutrition; L03.031 Cellulitis of right toe; I25.10 Atherosclerotic heart disease of native coronary artery without angina pectoris; E66.9 Obesity, unspecified; G47.00 Insomnia, unspecified; G89.4 Chronic pain syndrome; J96.22 Acute and chronic respiratory failure with hypercapnia; G62.9 Polyneuropathy, unspecified; R44.1 Visual hallucinations; F17.210 Nicotine dependence, cigarettes, uncomplicated; Z68.35 Body mass index [BMI] 35.0-35.9, adult; Z79.82 Long term (current) use of aspirin; Z79.899 Other long term (current) drug therapy; Z80.49 Family history of malignant neoplasm of other genital organs; Z80.8 Family history of malignant neoplasm of other organs or systems; Z90.710 Acquired absence of both cervix and uterus; Z98.61 Coronary angioplasty status; Z95.1 Presence of aortocoronary bypass graft
CPT/HCPCS: 36415; 36569; 36600; 51702; 71045; 76604; 80048; 80053; 81001; 82805; 82962; 83735; 83880; 84132; 84484; 85025; 85379; 85610; 87040; 87070; 87077; 87081; 87186; 87205; 93005; 93306; 93970; 94002; 94003; 94640; 94660; 96361; 96374; 96375; 97110; 97116; 97163; 97530; 99291; A6257; C9113; J0330; J0696; J1815; J2250; J2543; J2704; J3480; J3490; J7060

== ENCOUNTER 2018-06-24 14:15 | Inpatient (IN) | payer MEDICAID ==
[~2018-06-24] VITALS: Ht 157.5 cm; Wt 103.5 kg
[~2018-06-24 14:15] MED LIST changes: -DOCU-137 PO; +DOCU1CAP54 PO; +LOSA-46 PO; -LOSA50TA6 PO
[2018-06-24] MEDS ORDERED: SODIUM CHLORIDE 0.9% 1,000 ML IV ONE (14:32)
[2018-06-24] MEDS ORDERED: IOHEXOL 300 MG/ML 100ML BOTTLE IJ ONE ×2 (15:48→17:06)
[2018-06-24 15:51] LABS: Basophils # (auto) 0.1 uL; Basophils % (auto) 0.3 % (0.0-2.0); Eosinophils # (auto) 0 uL; Eosinophils % (auto) 0.1 % (0.0-7.0); Hematocrit 38.6 % (36.0-46.0); Hemoglobin 12.4 g/dL (12.2-16.2); Lymphocytes % (auto) 5.7 % (10.0-50.0); Mean Corpuscular Hemoglobin 29.6 pg (28.0-32.0); Mean Corpuscular Hgb Conc. 32.1 g/dL (32.0-36.0); Mean Corpuscular Volume 92.3 fL (80.0-100.0); Monocytes # (auto) 1.2 uL; Monocytes % (auto) 6.5 % (0.0-12.0); Neutrophils # (auto) 16.1 uL; Neutrophils % (auto) 87.4 % (37.0-80.0); Nucleated Red Blood Cells % 0.1 %; Platelet Count (auto) 289 10^3/uL (140-450); Red Blood Cells 4.19 10^6/uL (4.0-5.20); Red Cell Distribution Width 15.9 % (11.8-14.3); White Blood Cell 18.4 10^3/uL (4.4-10.8)
[2018-06-24 16:00] LABS: INR 0.95 (0.9-1.15); Partial Thromboplastin Time 25.7 sec (23.78-33.04); Prothrombin Time 10.2 sec (9.27-12.13)
[2018-06-24 16:09] LABS: Albumin 2.6 g/dL (3.4-5.0); BUN/Creatinine Ratio 18.8; Bilirubin, Total 0.4 mg/dL (0.2-1.0); Calcium 8.5 mg/dL (8.5-10.1); Potassium 3.7 mmol/L (3.5-5.1); Total Protein 6.6 g/dL (6.4-8.2)
[2018-06-24] MEDS ORDERED: IOHEXOL 350 MG/ML 100ML IJ ONE (17:07)
[2018-06-24] MEDS ORDERED: ACETAMINOPHEN 325 MG TAB PO ONE (17:45)
[2018-06-24] MEDS ORDERED: cefTRIAXone 1GM/10ml IVPUSH 10 ML IV ONE (18:15)
[2018-06-24 19:23] LABS: Urine Bacteria FEW /hpf (None Seen); Urine Blood Negative /uL (Negative); Urine Mucus FEW (None Seen); Urine Specific Gravity 1.025 (1.001-1.035); Urine WBC 1 /hpf (0 - 5)
[2018-06-24] MEDS ORDERED: ETOMIDATE (2MG/ML) 20ML VIAL IV ONE (19:27)
[2018-06-24] MEDS ORDERED: MIDAZOLAM HCL 5 MG/ML-1ML VIAL ONE (19:27)
[2018-06-24] MEDS ORDERED: SUCCINYLCHOLINE CHLORIDE 20 MG/ML 10ML VIAL IV ONE (19:28)
[2018-06-24] MEDS ORDERED: HYDROmorphone HCL 2 MG/ML VL IV ONE (19:30)
[2018-06-24] MEDS ORDERED: ONDANSETRON HCL 4 MG/2 ML VIAL IV ONE (19:30)
[2018-06-24] MEDS: fentaNYL Drip 2500mCg/250mlNS 250 ML IV SCH (19:51)
[2018-06-24 20:37] VITALS: BP 157/106
[2018-06-24] MEDS: MIDAZOLAM DRIP 50 mg/50mL 50 ML IV SCH ×2 (20:39→21:00)
[2018-06-24] MEDS ORDERED: ACETAMINOPHEN 325 MG TAB PO PRN (20:45)
[2018-06-24] MEDS ORDERED: MORPHINE SULF INJ 2 MG/ML SYRINGE 1ML IV PRN (20:45)
[2018-06-24] MEDS ORDERED: NITROGLYCERIN 0.4 MG SL TAB SL PRN (20:45)
[2018-06-24] MEDS ORDERED: VANCOMYCIN PER PHARMACY 0 MG IV SCH (20:45)
[2018-06-24] MEDS: SODIUM CHLORIDE 0.9% 1,000 ML IV SCH (20:58)
[2018-06-24 21:10] VITALS: BP 133/76
[2018-06-24] MEDS: VANCOMYCIN 1GM/250ML 250 ML IV SCH ×2 (22:00→23:00)
[2018-06-24 22:34] VITALS: BP 101/54
[2018-06-24 23:49] VITALS: BP 126/76
[2018-06-25] VITALS (64 sets, daily range): BP systolic 92–145; BP diastolic 38–82
[2018-06-25] MEDS ORDERED: ALBUTEROL SULF 2.5 MG/0.5ML(0.5%) NEB SOLN ONE (02:50)
[2018-06-25] MEDS: PIPERACILLIN-TAZOB 3.375GM 100 ML IV SCH ×4 (03:17→19:00)
[2018-06-25] MEDS ORDERED: VANCOMYCIN 1GM/250ML 250 ML IV SCH (06:00)
[2018-06-25] MEDS: ALBUTEROL SULF 2.5 MG/0.5ML(0.5%) NEB SOLN NEB SCH ×5 (06:48→22:14)
[2018-06-25] MEDS: IPRATROPIUM BROM 0.5 MG/2.5ML INH SOL NEB SCH ×5 (06:48→22:14)
[2018-06-25 06:53] LABS: Basophils # (auto) 0.1 uL; Basophils % (auto) 0.8 % (0.0-2.0); Eosinophils # (auto) 0 uL; Eosinophils % (auto) 0.1 % (0.0-7.0); Hematocrit 36.6 % (36.0-46.0); Lymphocytes # (auto) 1.1 uL; Lymphocytes % (auto) 6.2 % (10.0-50.0); Mean Corpuscular Hemoglobin 29.9 pg (28.0-32.0); Mean Corpuscular Hgb Conc. 32.8 g/dL (32.0-36.0); Mean Corpuscular Volume 91.2 fL (80.0-100.0); Monocytes # (auto) 1.4 uL; Monocytes % (auto) 7.8 % (0.0-12.0); Neutrophils # (auto) 15.4 uL; Neutrophils % (auto) 85.1 % (37.0-80.0); Nucleated Red Blood Cells % 0.1 %; Platelet Count (auto) 304 10^3/uL (140-450); Red Blood Cells 4.01 10^6/uL (4.0-5.20); Red Cell Distribution Width 15.6 % (11.8-14.3); White Blood Cell 18.1 10^3/uL (4.4-10.8)
[2018-06-25] MEDS ORDERED: ACETAMINOPHEN 650 MG RECT SUPP PR ONE (07:05)
[2018-06-25 07:09] LABS: Albumin 2.4 g/dL (3.4-5.0); Calcium 8.7 mg/dL (8.5-10.1); Potassium 3.5 mmol/L (3.5-5.1)
[2018-06-25 07:11] LABS: BUN/Creatinine Ratio 21.2
[2018-06-25 07:13] LABS: Bilirubin, Total 0.6 mg/dL (0.2-1.0); Total Protein 6.4 g/dL (6.4-8.2)
[2018-06-25] MEDS: SODIUM CHLORIDE 0.9% 1,000 ML IV SCH ×2 (08:25→20:11)
[2018-06-25] MEDS: MIDAZOLAM DRIP 50 mg/50mL 50 ML IV SCH ×2 (08:31→16:57)
[2018-06-25] MEDS: ASPirin 81 mg TAB PO SCH (10:47)
[2018-06-25] MEDS: PANTOPRAZOLE 40 MG/10 ML VIAL IV SCH (10:47)
[2018-06-25] MEDS: ENOXAPARIN SOD 40 MG/0.4 ML SYRINGE SC SCH (10:47)
[2018-06-25] MEDS ORDERED: acetaZOLAMIDE SODIUM 500 MG VL IV ONE (13:30)
[2018-06-25] MEDS: fentaNYL Drip 2500mCg/250mlNS 250 ML IV SCH (16:58)
[2018-06-25] MEDS ORDERED: DEXTROSE (50%) 50ML SYRG IV PRN (17:00)
[2018-06-25] MEDS: VANCOMYCIN 1GM/250ML 250 ML IV SCH (17:38)
[2018-06-25] MEDS: InsuLIN REG 1unit/0.01ml Soln (100units/ml) SC SCH (17:43)
[2018-06-25] MEDS: ACCU-CHEK COMFORT CURVE STRIP VI SCH (17:43)
[2018-06-26] VITALS (94 sets, daily range): BP systolic 68–159; BP diastolic 34–76
[2018-06-26] MEDS: MIDAZOLAM DRIP 50 mg/50mL 50 ML IV SCH ×3 (00:03→23:58)
[2018-06-26] MEDS: PIPERACILLIN-TAZOB 3.375GM 100 ML IV SCH ×4 (01:00→21:36)
[2018-06-26] MEDS: VANCOMYCIN 1GM/250ML 250 ML IV SCH ×2 (01:20→13:04)
[2018-06-26] MEDS: IPRATROPIUM BROM 0.5 MG/2.5ML INH SOL NEB SCH ×6 (02:18→22:11)
[2018-06-26] MEDS: ALBUTEROL SULF 2.5 MG/0.5ML(0.5%) NEB SOLN NEB SCH ×6 (02:18→22:11)
[2018-06-26] MEDS: InsuLIN REG 1unit/0.01ml Soln (100units/ml) SC SCH ×4 (06:00→18:00)
[2018-06-26] MEDS: ACCU-CHEK COMFORT CURVE STRIP VI SCH ×4 (06:21→18:00)
[2018-06-26 08:56] LABS: BUN/Creatinine Ratio 13.6; Calcium 7.7 mg/dL (8.5-10.1); Potassium 3.4 mmol/L (3.5-5.1)
[2018-06-26 08:58] LABS: Basophils # (auto) 0.1 uL; Basophils % (auto) 0.8 % (0.0-2.0); Eosinophils # (auto) 0.1 uL; Hematocrit 32.9 % (36.0-46.0); Hemoglobin 10.7 g/dL (12.2-16.2); Lymphocytes # (auto) 1.1 uL; Lymphocytes % (auto) 7.8 % (10.0-50.0); Mean Corpuscular Hemoglobin 29.8 pg (28.0-32.0); Mean Corpuscular Hgb Conc. 32.4 g/dL (32.0-36.0); Mean Corpuscular Volume 91.9 fL (80.0-100.0); Monocytes # (auto) 0.9 uL; Monocytes % (auto) 5.9 % (0.0-12.0); Neutrophils # (auto) 12.3 uL; Neutrophils % (auto) 84.5 % (37.0-80.0); Nucleated Red Blood Cells % 0.2 %; Platelet Count (auto) 268 10^3/uL (140-450); Red Blood Cells 3.58 10^6/uL (4.0-5.20); Red Cell Distribution Width 15.6 % (11.8-14.3); White Blood Cell 14.6 10^3/uL (4.4-10.8)
[2018-06-26] MEDS: PANTOPRAZOLE 40 MG/10 ML VIAL IV SCH (09:54)
[2018-06-26] MEDS: ENOXAPARIN SOD 40 MG/0.4 ML SYRINGE SC SCH (09:55)
[2018-06-26] MEDS: ASPirin 81 mg TAB PO SCH (09:55)
[2018-06-26] MEDS: NOREPINEPHRINE 8 MG/250ML KIT 250 ML IV SCH (11:00)
[2018-06-26] MEDS ORDERED: LIDOCAINE 1% (LOCAL ANESTH.) PF 5ml SDV ID ONE (13:15)
[2018-06-26] MEDS ORDERED: POTASSIUM CHL 20MEQ/100ML 200 ML IV ONE (14:34)
[2018-06-26] MEDS: SODIUM CHLORIDE 0.9% 1,000 ML IV SCH ×2 (15:30→19:43)
[2018-06-26] MEDS: POTASSIUM CHL 20MEQ/100ML 100 ML IV SCH ×2 (15:32→17:00)
[2018-06-26] MEDS: fentaNYL Drip 2500mCg/250mlNS 250 ML IV SCH (17:04)
[2018-06-26] MEDS: ACETAMINOPHEN 650 mg PER 20 mL UD GT PRN (18:22)
[2018-06-26] MEDS ORDERED: ACETYLCYSTEINE 20%(200MG/ML) SOL 4ML NEB SCH (19:00)
[2018-06-26] MEDS ORDERED: LIDOCAINE 2% (LOCAL ANESTH.) PF 5ml SDV ONE (19:38)
[2018-06-26] MEDS ORDERED: BENZOCAINE (DENTAL) 20 % SPRAY 60ML MT ONE (19:38)
[2018-06-26] MEDS ORDERED: EPINEPHrine HCL 1 MG/1 ML AMP ONE (19:39)
[2018-06-26] MEDS ORDERED: MIDAZOLAM HCL 5 MG/ML-1ML VIAL ONE (19:39)
[2018-06-26] MEDS ORDERED: HYDROmorphone HCL 2 MG/ML VL ONE (19:39)
[2018-06-26] MEDS ORDERED: SODIUM CHLORIDE LOCK 20 ML ONE (19:39)
[2018-06-26] MEDS ORDERED: GLYCOPYRROLATE 0.2 MG/ML 1ML VIAL ONE (19:40)
[2018-06-26] MEDS ORDERED: LIDOCAINE 2% JELLY 11ml (GLYDO) ONE (19:45)
[2018-06-26] MEDS: ACETYLCYSTEINE 10 %(100MG/ML) SOL 4ML NEB SCH (22:12)
[2018-06-26] MEDS: SODIUM CHLOR 0.9% PF (SALINE LOCK) 10ML VIAL/SYR IV SCH (22:57)
[2018-06-27] VITALS (60 sets, daily range): BP systolic 96–171; BP diastolic 39–68
[2018-06-27] MEDS: ACCU-CHEK COMFORT CURVE STRIP VI SCH ×5 (00:19→23:37)
[2018-06-27] MEDS: VANCOMYCIN 1GM/250ML 250 ML IV SCH ×3 (01:21→15:04)
[2018-06-27] MEDS: IPRATROPIUM BROM 0.5 MG/2.5ML INH SOL NEB SCH ×6 (02:19→22:31)
[2018-06-27] MEDS: ALBUTEROL SULF 2.5 MG/0.5ML(0.5%) NEB SOLN NEB SCH ×6 (02:19→22:30)
[2018-06-27] MEDS: PIPERACILLIN-TAZOB 3.375GM 100 ML IV SCH ×2 (03:03→09:40)
[2018-06-27 04:43] LABS: Basophils # (auto) 0.1 uL; Basophils % (auto) 0.8 % (0.0-2.0); Eosinophils # (auto) 0.3 uL; Eosinophils % (auto) 2.9 % (0.0-7.0); Hematocrit 29.1 % (36.0-46.0); Hemoglobin 9.6 g/dL (12.2-16.2); Lymphocytes # (auto) 0.9 uL; Mean Corpuscular Hgb Conc. 32.9 g/dL (32.0-36.0); Mean Corpuscular Volume 91.3 fL (80.0-100.0); Monocytes # (auto) 0.7 uL; Monocytes % (auto) 7.2 % (0.0-12.0); Neutrophils % (auto) 80.1 % (37.0-80.0); Nucleated Red Blood Cells % 0.1 %; Platelet Count (auto) 268 10^3/uL (140-450); Red Blood Cells 3.19 10^6/uL (4.0-5.20); Red Cell Distribution Width 15.5 % (11.8-14.3)
[2018-06-27 05:01] LABS: Calcium 7.5 mg/dL (8.5-10.1); Potassium 3.1 mmol/L (3.5-5.1)
[2018-06-27 05:05] LABS: Albumin 1.8 g/dL (3.4-5.0); BUN/Creatinine Ratio 20.3
[2018-06-27 05:08] LABS: Bilirubin, Total 0.5 mg/dL (0.2-1.0); Total Protein 5.3 g/dL (6.4-8.2)
[2018-06-27] MEDS: ACETYLCYSTEINE 10 %(100MG/ML) SOL 4ML NEB SCH ×3 (05:50→22:31)
[2018-06-27] MEDS: InsuLIN REG 1unit/0.01ml Soln (100units/ml) SC SCH ×5 (06:32→23:37)
[2018-06-27] MEDS: SODIUM CHLORIDE 0.9% 1,000 ML IV SCH ×2 (07:30→20:08)
[2018-06-27] MEDS: POTASSIUM CHL 20MEQ/100ML 100 ML IV SCH ×2 (09:40→11:00)
[2018-06-27] MEDS: SODIUM CHLOR 0.9% PF (SALINE LOCK) 10ML VIAL/SYR IV SCH ×2 (09:40→22:00)
[2018-06-27] MEDS: PANTOPRAZOLE 40 MG/10 ML VIAL IV SCH (09:40)
[2018-06-27] MEDS: ASPirin 81 mg TAB PO SCH (09:40)
[2018-06-27] MEDS: ENOXAPARIN SOD 40 MG/0.4 ML SYRINGE SC SCH (09:40)
[2018-06-27] MEDS: NOREPINEPHRINE 8 MG/250ML KIT 250 ML IV SCH (09:41)
[2018-06-27] MEDS ORDERED: PIPERACILLIN-TAZO 4.5GM 100 ML IV SCH (10:00)
[2018-06-27] MEDS: fentaNYL Drip 2500mCg/250mlNS 250 ML IV SCH ×2 (11:48→23:39)
[2018-06-27] MEDS: MIDAZOLAM DRIP 50 mg/50mL 50 ML IV SCH (11:49)
[2018-06-27] MEDS: PIPERACILLIN-TAZO 4.5GM 100 ML IV SCH ×2 (18:00→23:03)
[2018-06-27 19:19] LABS: Basophils # (auto) 0.1 uL; Basophils % (auto) 0.8 % (0.0-2.0); Eosinophils # (auto) 0.3 uL; Eosinophils % (auto) 2.9 % (0.0-7.0); Hematocrit 29.4 % (36.0-46.0); Hemoglobin 9.8 g/dL (12.2-16.2); Lymphocytes % (auto) 9.2 % (10.0-50.0); Mean Corpuscular Hemoglobin 30.6 pg (28.0-32.0); Mean Corpuscular Hgb Conc. 33.5 g/dL (32.0-36.0); Mean Corpuscular Volume 91.5 fL (80.0-100.0); Monocytes # (auto) 0.6 uL; Monocytes % (auto) 5.8 % (0.0-12.0); Neutrophils # (auto) 8.7 uL; Neutrophils % (auto) 81.3 % (37.0-80.0); Platelet Count (auto) 274 10^3/uL (140-450); Red Blood Cells 3.21 10^6/uL (4.0-5.20); Red Cell Distribution Width 15.7 % (11.8-14.3); White Blood Cell 10.7 10^3/uL (4.4-10.8)
[2018-06-27 19:34] LABS: Albumin 1.8 g/dL (3.4-5.0); BUN/Creatinine Ratio 21.1; Bilirubin, Total 0.4 mg/dL (0.2-1.0); Calcium 7.2 mg/dL (8.5-10.1); Potassium 3.5 mmol/L (3.5-5.1); Total Protein 5.2 g/dL (6.4-8.2)
[2018-06-27] MEDS: ACETAMINOPHEN 650 mg PER 20 mL UD GT PRN (20:32)
[2018-06-27] MEDS ORDERED: Jevity 1.2 Cal/Fiber 1 Liter GT SCH (21:15)
[2018-06-27 21:45] LABS: Magnesium 2.3 mg/dL (1.6-2.6); Phosphorus 2.7 mg/dL (2.5-4.90)
[2018-06-28] VITALS (103 sets, daily range): BP systolic 92–163; BP diastolic 35–71
[2018-06-28] MEDS: VANCOMYCIN 1GM/250ML 250 ML IV SCH ×2 (01:54→13:02)
[2018-06-28] MEDS: MIDAZOLAM DRIP 50 mg/50mL 50 ML IV SCH ×2 (01:54→12:09)
[2018-06-28] MEDS: ALBUTEROL SULF 2.5 MG/0.5ML(0.5%) NEB SOLN NEB SCH ×6 (02:14→22:14)
[2018-06-28] MEDS: IPRATROPIUM BROM 0.5 MG/2.5ML INH SOL NEB SCH ×6 (02:14→22:14)
[2018-06-28 04:17] LABS: Basophils # (auto) 0.1 uL; Basophils % (auto) 0.7 % (0.0-2.0); Eosinophils # (auto) 0.3 uL; Eosinophils % (auto) 3.1 % (0.0-7.0); Hematocrit 31.1 % (36.0-46.0); Hemoglobin 10.1 g/dL (12.2-16.2); Lymphocytes % (auto) 10.1 % (10.0-50.0); Mean Corpuscular Hemoglobin 29.8 pg (28.0-32.0); Mean Corpuscular Hgb Conc. 32.6 g/dL (32.0-36.0); Mean Corpuscular Volume 91.3 fL (80.0-100.0); Monocytes # (auto) 0.7 uL; Monocytes % (auto) 7.3 % (0.0-12.0); Neutrophils % (auto) 78.8 % (37.0-80.0); Platelet Count (auto) 304 10^3/uL (140-450); White Blood Cell 10.2 10^3/uL (4.4-10.8)
[2018-06-28] MEDS: PIPERACILLIN-TAZO 4.5GM 100 ML IV SCH ×4 (04:28→22:23)
[2018-06-28 04:35] LABS: BUN/Creatinine Ratio 17.7; Calcium 7.6 mg/dL (8.5-10.1); Potassium 3.4 mmol/L (3.5-5.1)
[2018-06-28] MEDS: ACETYLCYSTEINE 10 %(100MG/ML) SOL 4ML NEB SCH ×3 (05:57→22:14)
[2018-06-28] MEDS: InsuLIN REG 1unit/0.01ml Soln (100units/ml) SC SCH ×3 (06:00→17:36)
[2018-06-28] MEDS: ACCU-CHEK COMFORT CURVE STRIP VI SCH ×3 (06:16→17:36)
[2018-06-28] MEDS: SODIUM CHLORIDE 0.9% 1,000 ML IV SCH ×2 (08:15→22:52)
[2018-06-28] MEDS: PANTOPRAZOLE 40 MG/10 ML VIAL IV SCH (09:46)
[2018-06-28] MEDS: ACETAMINOPHEN 650 mg PER 20 mL UD GT PRN ×2 (09:46→17:41)
[2018-06-28] MEDS: ENOXAPARIN SOD 40 MG/0.4 ML SYRINGE SC SCH (09:47)
[2018-06-28] MEDS: SODIUM CHLOR 0.9% PF (SALINE LOCK) 10ML VIAL/SYR IV SCH ×2 (09:47→22:23)
[2018-06-28] MEDS: ASPirin 81 mg TAB PO SCH (09:47)
[2018-06-28] MEDS: NOREPINEPHRINE 8 MG/250ML KIT 250 ML IV SCH (12:08)
[2018-06-28] MEDS: fentaNYL Drip 2500mCg/250mlNS 250 ML IV SCH (12:09)
[2018-06-28] MEDS ORDERED: CLOPIDOGREL BISULFATE 75 MG TAB PO SCH (22:00)
[2018-06-28] MEDS ORDERED: CLOPIDOGREL BISULFATE 75 MG TAB PO ONE (22:30)
[2018-06-29] VITALS (105 sets, daily range): BP systolic 97–165; BP diastolic 33–130
[2018-06-29] MEDS: ACCU-CHEK COMFORT CURVE STRIP VI SCH ×5 (00:19→23:53)
[2018-06-29] MEDS: VANCOMYCIN 1GM/250ML 250 ML IV SCH ×2 (01:30→12:35)
[2018-06-29] MEDS: fentaNYL Drip 2500mCg/250mlNS 250 ML IV SCH ×2 (01:36→15:42)
[2018-06-29] MEDS: ALBUTEROL SULF 2.5 MG/0.5ML(0.5%) NEB SOLN NEB SCH ×6 (02:13→22:23)
[2018-06-29] MEDS: IPRATROPIUM BROM 0.5 MG/2.5ML INH SOL NEB SCH ×6 (02:13→22:23)
[2018-06-29] MEDS: PIPERACILLIN-TAZO 4.5GM 100 ML IV SCH ×4 (03:46→21:58)
[2018-06-29 04:09] LABS: Basophils # (auto) 0.1 uL; Basophils % (auto) 1.3 % (0.0-2.0); Eosinophils # (auto) 0.4 uL; Eosinophils % (auto) 3.7 % (0.0-7.0); Hematocrit 28.3 % (36.0-46.0); Hemoglobin 9.5 g/dL (12.2-16.2); Lymphocytes % (auto) 9.5 % (10.0-50.0); Mean Corpuscular Hemoglobin 30.6 pg (28.0-32.0); Mean Corpuscular Hgb Conc. 33.5 g/dL (32.0-36.0); Mean Corpuscular Volume 91.5 fL (80.0-100.0); Monocytes # (auto) 0.6 uL; Monocytes % (auto) 5.8 % (0.0-12.0); Neutrophils # (auto) 8.4 uL; Neutrophils % (auto) 79.7 % (37.0-80.0); Platelet Count (auto) 314 10^3/uL (140-450); Red Blood Cells 3.09 10^6/uL (4.0-5.20); Red Cell Distribution Width 15.9 % (11.8-14.3); White Blood Cell 10.5 10^3/uL (4.4-10.8)
[2018-06-29 04:29] LABS: Calcium 7.3 mg/dL (8.5-10.1); Potassium 3.3 mmol/L (3.5-5.1)
[2018-06-29 04:31] LABS: BUN/Creatinine Ratio 17.6
[2018-06-29] MEDS ORDERED: POTASSIUM EFFERVESENT TAB 25 MEQ GT ONE ×2 (05:00→05:15)
[2018-06-29] MEDS: InsuLIN REG 1unit/0.01ml Soln (100units/ml) SC SCH ×5 (06:00→23:53)
[2018-06-29] MEDS: ACETYLCYSTEINE 10 %(100MG/ML) SOL 4ML NEB SCH ×3 (06:06→22:24)
[2018-06-29] MEDS: MIDAZOLAM DRIP 50 mg/50mL 50 ML IV SCH ×2 (07:32→18:17)
[2018-06-29] MEDS: PANTOPRAZOLE 40 MG/10 ML VIAL IV SCH (09:51)
[2018-06-29] MEDS: ENOXAPARIN SOD 40 MG/0.4 ML SYRINGE SC SCH (09:51)
[2018-06-29] MEDS: SODIUM CHLOR 0.9% PF (SALINE LOCK) 10ML VIAL/SYR IV SCH ×2 (09:54→22:49)
[2018-06-29] MEDS: CLOPIDOGREL BISULFATE 75 MG TAB PO SCH (09:54)
[2018-06-29] MEDS: ASPirin 81 mg TAB PO SCH (09:54)
[2018-06-29] MEDS: NOREPINEPHRINE 8 MG/250ML KIT 250 ML IV SCH (10:57)
[2018-06-29] MEDS: SODIUM CHLORIDE 0.9% 1,000 ML IV SCH ×2 (10:57→17:34)
[2018-06-29] MEDS ORDERED: FUROSEMIDE 20 MG/2 ML VIAL IV ONE (17:15)
[2018-06-30] VITALS (83 sets, daily range): BP systolic 95–178; BP diastolic 20–95
[2018-06-30] MEDS: VANCOMYCIN 1GM/250ML 250 ML IV SCH ×2 (01:03→13:34)
[2018-06-30] MEDS: IPRATROPIUM BROM 0.5 MG/2.5ML INH SOL NEB SCH ×5 (02:39→22:15)
[2018-06-30] MEDS: ALBUTEROL SULF 2.5 MG/0.5ML(0.5%) NEB SOLN NEB SCH ×6 (02:39→22:15)
[2018-06-30 04:32] LABS: Basophils # (auto) 0.1 uL; Basophils % (auto) 0.9 % (0.0-2.0); Eosinophils # (auto) 0.5 uL; Eosinophils % (auto) 3.9 % (0.0-7.0); Hematocrit 31.2 % (36.0-46.0); Hemoglobin 10.2 g/dL (12.2-16.2); Mean Corpuscular Hemoglobin 29.6 pg (28.0-32.0); Mean Corpuscular Hgb Conc. 32.7 g/dL (32.0-36.0); Mean Corpuscular Volume 90.7 fL (80.0-100.0); Monocytes # (auto) 0.8 uL; Monocytes % (auto) 6.5 % (0.0-12.0); Neutrophils # (auto) 10.2 uL; Neutrophils % (auto) 80.7 % (37.0-80.0); Nucleated Red Blood Cells % 0.1 %; Platelet Count (auto) 366 10^3/uL (140-450); Red Blood Cells 3.44 10^6/uL (4.0-5.20); Red Cell Distribution Width 15.9 % (11.8-14.3); White Blood Cell 12.6 10^3/uL (4.4-10.8)
[2018-06-30 04:49] LABS: BUN/Creatinine Ratio 14.3; Calcium 7.6 mg/dL (8.5-10.1); Potassium 3.4 mmol/L (3.5-5.1)
[2018-06-30] MEDS: PIPERACILLIN-TAZO 4.5GM 100 ML IV SCH ×4 (05:37→21:40)
[2018-06-30] MEDS: ACETYLCYSTEINE 10 %(100MG/ML) SOL 4ML NEB SCH ×2 (05:40→22:15)
[2018-06-30] MEDS: InsuLIN REG 1unit/0.01ml Soln (100units/ml) SC SCH ×3 (06:00→17:25)
[2018-06-30] MEDS: ACCU-CHEK COMFORT CURVE STRIP VI SCH ×3 (06:25→17:25)
[2018-06-30] MEDS: PANTOPRAZOLE 40 MG/10 ML VIAL IV SCH (10:04)
[2018-06-30] MEDS: ASPirin 81 mg TAB PO SCH (10:05)
[2018-06-30] MEDS: SODIUM CHLOR 0.9% PF (SALINE LOCK) 10ML VIAL/SYR IV SCH ×2 (10:05→22:00)
[2018-06-30] MEDS: CLOPIDOGREL BISULFATE 75 MG TAB PO SCH (10:05)
[2018-06-30] MEDS: ACETAMINOPHEN 650 mg PER 20 mL UD GT PRN (10:12)
[2018-06-30] MEDS: ENOXAPARIN SOD 40 MG/0.4 ML SYRINGE SC SCH (10:21)
[2018-06-30] MEDS ORDERED: FUROSEMIDE 20 MG/2 ML VIAL IV ONE (10:45)
[2018-06-30] MEDS: NOREPINEPHRINE 8 MG/250ML KIT 250 ML IV SCH (11:00)
[2018-06-30] MEDS: SODIUM CHLORIDE 0.9% 1,000 ML IV SCH (17:25)
[2018-06-30] MEDS ORDERED: HYDROcodone-ACET 5/325MG TAB PO PRN (18:30)
[2018-06-30] MEDS: PRAVASTATIN SODIUM 20 MG TAB PO SCH (21:36)
[2018-06-30] MEDS: POTASSIUM CHLORIDE 8 MEQ TAB PO SCH (21:36)
[2018-06-30] MEDS: GABAPENTIN 300 MG CAP PO SCH (21:36)
[2018-06-30] MEDS: HYDROcodone-ACET 5/325MG TAB PO PRN (21:37)
[2018-06-30] MEDS ORDERED: PATIENTS OWN MEDICATION (Gabapentin 300 MG) PO SCH (22:00)
[2018-06-30] MEDS: ONDANSETRON HCL 4 MG/2 ML VIAL IV PRN (22:10)
[2018-07-01] VITALS (24 sets, daily range): BP systolic 144–184; BP diastolic 63–90
[2018-07-01] MEDS: ACCU-CHEK COMFORT CURVE STRIP VI SCH ×4 (00:12→17:51)
[2018-07-01] MEDS: VANCOMYCIN 1GM/250ML 250 ML IV SCH ×2 (00:37→14:00)
[2018-07-01] MEDS: ALBUTEROL SULF 2.5 MG/0.5ML(0.5%) NEB SOLN NEB SCH ×6 (02:19→22:10)
[2018-07-01] MEDS: IPRATROPIUM BROM 0.5 MG/2.5ML INH SOL NEB SCH ×6 (02:20→22:10)
[2018-07-01] MEDS: PIPERACILLIN-TAZO 4.5GM 100 ML IV SCH ×4 (03:49→21:35)
[2018-07-01 04:35] LABS: BUN/Creatinine Ratio 12.8; Calcium 7.5 mg/dL (8.5-10.1); Potassium 3.1 mmol/L (3.5-5.1)
[2018-07-01] MEDS: ONDANSETRON HCL 4 MG/2 ML VIAL IV PRN ×2 (05:05→10:16)
[2018-07-01] MEDS: InsuLIN REG 1unit/0.01ml Soln (100units/ml) SC SCH ×4 (06:00→17:52)
[2018-07-01] MEDS: FUROSEMIDE 40 MG TAB PO SCH ×2 (06:00→17:44)
[2018-07-01] MEDS: GABAPENTIN 300 MG CAP PO SCH ×3 (06:00→21:35)
[2018-07-01] MEDS: ACETYLCYSTEINE 10 %(100MG/ML) SOL 4ML NEB SCH ×3 (06:56→22:11)
[2018-07-01] MEDS: ATENOLOL 50 MG TAB PO SCH (10:00)
[2018-07-01] MEDS: SODIUM CHLOR 0.9% PF (SALINE LOCK) 10ML VIAL/SYR IV SCH ×2 (10:00→21:36)
[2018-07-01] MEDS ORDERED: PANTOPRAZOLE 40 MG TAB PO SCH (10:00)
[2018-07-01] MEDS: CLOPIDOGREL BISULFATE 75 MG TAB PO SCH (10:00)
[2018-07-01] MEDS ORDERED: METOPROLOL TARTRATE 1MG/1ML-5ML VIAL IV PRN (10:00)
[2018-07-01] MEDS: POTASSIUM CHLORIDE 8 MEQ TAB PO SCH (10:00)
[2018-07-01] MEDS: ASPirin-EC 81 mg tab PO SCH (10:00)
[2018-07-01] MEDS: LOSARTAN POTASSIUM 50 MG TAB PO SCH (10:00)
[2018-07-01] MEDS ORDERED: PATIENTS OWN MEDICATION (Omeprazole (Prilosec) 1 CAP) PO SCH (10:00)
[2018-07-01] MEDS: LEVOTHYROXINE SODIUM 50 MCG TAB PO SCH (10:00)
[2018-07-01] MEDS: ENOXAPARIN SOD 40 MG/0.4 ML SYRINGE SC SCH ×2 (10:16→21:36)
[2018-07-01] MEDS: NOREPINEPHRINE 8 MG/250ML KIT 250 ML IV SCH (11:00)
[2018-07-01] MEDS ORDERED: PANTOPRAZOLE 40 MG/10 ML VIAL IV ONE (11:15)
[2018-07-01] MEDS ORDERED: POTASSIUM CHL 20MEQ/100ML 100 ML IV ONE (11:15)
[2018-07-01 12:06] LABS: Basophils # (auto) 0.1 uL; Eosinophils # (auto) 0.2 uL; Lymphocytes # (auto) 0.9 uL; Monocytes # (auto) 0.6 uL
[2018-07-01 12:09] LABS: Basophils % (auto) 0.8 % (0.0-2.0); Eosinophils % (auto) 1.2 % (0.0-7.0); Hematocrit 34.7 % (36.0-46.0); Hemoglobin 11.4 g/dL (12.2-16.2); Lymphocytes % (auto) 6.3 % (10.0-50.0); Mean Corpuscular Hemoglobin 29.7 pg (28.0-32.0); Mean Corpuscular Hgb Conc. 32.9 g/dL (32.0-36.0); Mean Corpuscular Volume 90.5 fL (80.0-100.0); Monocytes % (auto) 4.5 % (0.0-12.0); Neutrophils # (auto) 11.9 uL; Neutrophils % (auto) 87.2 % (37.0-80.0); Platelet Count (auto) 464 10^3/uL (140-450); Red Blood Cells 3.83 10^6/uL (4.0-5.20); Red Cell Distribution Width 15.8 % (11.8-14.3); White Blood Cell 13.7 10^3/uL (4.4-10.8)
[2018-07-01 12:29] LABS: BUN/Creatinine Ratio 9.4; Bilirubin, Total 0.5 mg/dL (0.2-1.0); Calcium 7.9 mg/dL (8.5-10.1); Potassium 3.1 mmol/L (3.5-5.1); Total Protein 6.1 g/dL (6.4-8.2)
[2018-07-01] MEDS: METOCLOPRAMIDE HCL 5MG/ml INJ 2ml VIAL IV SCH ×2 (13:06→17:43)
[2018-07-01] MEDS ORDERED: MORPHINE SULF INJ 2 MG/ML SYRINGE 1ML IV PRN (15:00)
[2018-07-01] MEDS: SUCRALFATE 1 GM/10 ML ORAL SUSP GT SCH ×2 (17:43→21:35)
[2018-07-01] MEDS: PRAVASTATIN SODIUM 20 MG TAB PO SCH (21:35)
[2018-07-01] MEDS: PANTOPRAZOLE 40 MG/10 ML VIAL IV SCH (21:36)
[2018-07-02] VITALS (25 sets, daily range): BP systolic 109–158; BP diastolic 43–80
[2018-07-02] MEDS: VANCOMYCIN 1GM/250ML 250 ML IV SCH ×2 (01:07→13:30)
[2018-07-02] MEDS: IPRATROPIUM BROM 0.5 MG/2.5ML INH SOL NEB SCH ×5 (02:12→19:11)
[2018-07-02] MEDS: ALBUTEROL SULF 2.5 MG/0.5ML(0.5%) NEB SOLN NEB SCH ×4 (02:12→19:10)
[2018-07-02] MEDS: PIPERACILLIN-TAZO 4.5GM 100 ML IV SCH ×4 (03:53→22:44)
[2018-07-02 03:56] LABS: Basophils # (auto) 0.1 uL; Hemoglobin 10.6 g/dL (12.2-16.2); Lymphocytes # (auto) 1.3 uL
[2018-07-02 03:59] LABS: Basophils % (auto) 1.2 % (0.0-2.0); Eosinophils # (auto) 0.3 uL; Eosinophils % (auto) 2.8 % (0.0-7.0); Hematocrit 32.7 % (36.0-46.0); Lymphocytes % (auto) 11.3 % (10.0-50.0); Mean Corpuscular Hemoglobin 29.2 pg (28.0-32.0); Mean Corpuscular Hgb Conc. 32.3 g/dL (32.0-36.0); Mean Corpuscular Volume 90.3 fL (80.0-100.0); Monocytes # (auto) 0.9 uL; Monocytes % (auto) 7.3 % (0.0-12.0); Neutrophils # (auto) 9.1 uL; Neutrophils % (auto) 77.4 % (37.0-80.0); Platelet Count (auto) 473 10^3/uL (140-450); Red Blood Cells 3.62 10^6/uL (4.0-5.20); Red Cell Distribution Width 15.7 % (11.8-14.3); White Blood Cell 11.7 10^3/uL (4.4-10.8)
[2018-07-02 04:13] LABS: BUN/Creatinine Ratio 8.5; Calcium 7.8 mg/dL (8.5-10.1)
[2018-07-02 04:17] LABS: Potassium 2.7 mmol/L (3.5-5.1)
[2018-07-02] MEDS: METOCLOPRAMIDE HCL 5MG/ml INJ 2ml VIAL IV SCH ×6 (05:40→23:50)
[2018-07-02] MEDS: FUROSEMIDE 40 MG TAB PO SCH ×2 (05:45→18:21)
[2018-07-02] MEDS: ACETYLCYSTEINE 10 %(100MG/ML) SOL 4ML NEB SCH ×2 (05:47→13:33)
[2018-07-02] MEDS: GABAPENTIN 300 MG CAP PO SCH ×3 (05:55→22:42)
[2018-07-02] MEDS: SUCRALFATE 1 GM/10 ML ORAL SUSP GT SCH ×4 (05:56→22:39)
[2018-07-02] MEDS: InsuLIN REG 1unit/0.01ml Soln (100units/ml) SC SCH ×3 (06:00→12:00)
[2018-07-02] MEDS: ACCU-CHEK COMFORT CURVE STRIP VI SCH ×3 (06:02→12:00)
[2018-07-02] MEDS: POTASSIUM CHL 20MEQ/100ML 100 ML IV SCH ×2 (06:17→08:03)
[2018-07-02] MEDS ORDERED: PANTOPRAZOLE 40 MG TAB PO SCH (10:00)
[2018-07-02] MEDS: SODIUM CHLOR 0.9% PF (SALINE LOCK) 10ML VIAL/SYR IV SCH ×2 (10:00→22:00)
[2018-07-02] MEDS: LEVOTHYROXINE SODIUM 50 MCG TAB PO SCH (10:12)
[2018-07-02] MEDS: ASPirin-EC 81 mg tab PO SCH (10:12)
[2018-07-02] MEDS: POTASSIUM CHLORIDE 8 MEQ TAB PO SCH ×2 (10:12→22:40)
[2018-07-02] MEDS: LOSARTAN POTASSIUM 50 MG TAB PO SCH (10:12)
[2018-07-02] MEDS: CLOPIDOGREL BISULFATE 75 MG TAB PO SCH (10:12)
[2018-07-02] MEDS: ENOXAPARIN SOD 40 MG/0.4 ML SYRINGE SC SCH (10:13)
[2018-07-02] MEDS: PANTOPRAZOLE 40 MG/10 ML VIAL IV SCH (10:13)
[2018-07-02] MEDS: ATENOLOL 50 MG TAB PO SCH (10:13)
[2018-07-02] MEDS: NOREPINEPHRINE 8 MG/250ML KIT 250 ML IV SCH (11:00)
[2018-07-02] MEDS ORDERED: POTASSIUM CHL 20 Meq TABLET PO ONE (15:00)
[2018-07-02] MEDS: HYDROcodone-ACET 5/325MG TAB PO PRN (18:44)
[2018-07-02] MEDS: PRAVASTATIN SODIUM 20 MG TAB PO SCH (22:42)
[2018-07-02] MEDS: PANTOPRAZOLE 40 MG TAB PO SCH (22:42)
[2018-07-03] VITALS (11 sets, daily range): BP systolic 106–154; BP diastolic 43–72
[2018-07-03] MEDS: IPRATROPIUM BROM 0.5 MG/2.5ML INH SOL NEB SCH ×4 (00:43→19:03)
[2018-07-03] MEDS: ALBUTEROL SULF 2.5 MG/0.5ML(0.5%) NEB SOLN NEB SCH ×4 (00:43→19:03)
[2018-07-03] MEDS: PIPERACILLIN-TAZO 4.5GM 100 ML IV SCH ×4 (04:55→21:53)
[2018-07-03 05:25] LABS: BUN/Creatinine Ratio 7.1; Calcium 7.8 mg/dL (8.5-10.1); Potassium 3.5 mmol/L (3.5-5.1)
[2018-07-03] MEDS: FUROSEMIDE 40 MG TAB PO SCH ×2 (05:29→17:20)
[2018-07-03] MEDS: GABAPENTIN 300 MG CAP PO SCH ×3 (05:29→21:53)
[2018-07-03] MEDS: METOCLOPRAMIDE HCL 5MG/ml INJ 2ml VIAL IV SCH (05:29)
[2018-07-03] MEDS: SUCRALFATE 1 GM/10 ML ORAL SUSP GT SCH ×4 (05:30→21:52)
[2018-07-03] MEDS: HYDROcodone-ACET 5/325MG TAB PO PRN ×2 (05:59→16:59)
[2018-07-03] MEDS: ATENOLOL 50 MG TAB PO SCH (10:00)
[2018-07-03] MEDS: SODIUM CHLOR 0.9% PF (SALINE LOCK) 10ML VIAL/SYR IV SCH ×2 (10:08→21:58)
[2018-07-03] MEDS: ENOXAPARIN SOD 40 MG/0.4 ML SYRINGE SC SCH (10:09)
[2018-07-03] MEDS: LOSARTAN POTASSIUM 50 MG TAB PO SCH (10:09)
[2018-07-03] MEDS: PANTOPRAZOLE 40 MG TAB PO SCH ×2 (10:10→21:53)
[2018-07-03] MEDS: LEVOTHYROXINE SODIUM 50 MCG TAB PO SCH (10:10)
[2018-07-03] MEDS: ASPirin-EC 81 mg tab PO SCH (10:10)
[2018-07-03] MEDS: CLOPIDOGREL BISULFATE 75 MG TAB PO SCH (10:10)
[2018-07-03] MEDS: POTASSIUM CHLORIDE 8 MEQ TAB PO SCH ×2 (10:23→21:53)
[2018-07-03] MEDS ORDERED: POTASSIUM CHL 20 Meq TABLET PO ONE (11:00)
[2018-07-03] MEDS: PRAVASTATIN SODIUM 20 MG TAB PO SCH (21:53)
[2018-07-04] MEDS: IPRATROPIUM BROM 0.5 MG/2.5ML INH SOL NEB SCH ×4 (00:23→18:21)
[2018-07-04] MEDS: ALBUTEROL SULF 2.5 MG/0.5ML(0.5%) NEB SOLN NEB SCH ×4 (00:23→18:21)
[2018-07-04] MEDS: HYDROcodone-ACET 5/325MG TAB PO PRN ×4 (03:28→22:42)
[2018-07-04] MEDS: PIPERACILLIN-TAZO 4.5GM 100 ML IV SCH ×2 (03:30→09:01)
[2018-07-04 04:46] VITALS: BP 140/65
[2018-07-04] MEDS: FUROSEMIDE 40 MG TAB PO SCH ×2 (06:01→18:38)
[2018-07-04] MEDS: GABAPENTIN 300 MG CAP PO SCH ×3 (06:01→22:39)
[2018-07-04] MEDS: SUCRALFATE 1 GM/10 ML ORAL SUSP GT SCH ×4 (06:02→22:38)
[2018-07-04 09:00] VITALS: BP 123/64
[2018-07-04] MEDS: ENOXAPARIN SOD 40 MG/0.4 ML SYRINGE SC SCH (09:02)
[2018-07-04] MEDS: CLOPIDOGREL BISULFATE 75 MG TAB PO SCH (09:02)
[2018-07-04] MEDS: PANTOPRAZOLE 40 MG TAB PO SCH ×2 (09:03→22:41)
[2018-07-04] MEDS: POTASSIUM CHLORIDE 8 MEQ TAB PO SCH ×2 (09:03→22:39)
[2018-07-04] MEDS: LEVOTHYROXINE SODIUM 50 MCG TAB PO SCH (09:04)
[2018-07-04] MEDS: LOSARTAN POTASSIUM 50 MG TAB PO SCH (09:04)
[2018-07-04] MEDS: ASPirin-EC 81 mg tab PO SCH (09:05)
[2018-07-04] MEDS: ATENOLOL 50 MG TAB PO SCH (09:05)
[2018-07-04] MEDS: SODIUM CHLOR 0.9% PF (SALINE LOCK) 10ML VIAL/SYR IV SCH ×2 (10:00→22:39)
[2018-07-04] MEDS ORDERED: LEVOFLOXACIN 500 MG TAB PO ONE (12:30)
[2018-07-04 13:00] VITALS: BP 128/70
[2018-07-04 17:00] VITALS: BP 139/63
[2018-07-04 21:29] VITALS: BP 158/55
[2018-07-04] MEDS: PRAVASTATIN SODIUM 20 MG TAB PO SCH (22:41)
[2018-07-04 22:50] VITALS: BP 117/62
[2018-07-05] MEDS: ALBUTEROL SULF 2.5 MG/0.5ML(0.5%) NEB SOLN NEB SCH ×3 (00:15→12:15)
[2018-07-05] MEDS: IPRATROPIUM BROM 0.5 MG/2.5ML INH SOL NEB SCH ×3 (00:15→12:15)
[2018-07-05] MEDS: HYDROcodone-ACET 5/325MG TAB PO PRN ×2 (02:57→06:53)
[2018-07-05 05:29] VITALS: BP 152/68
[2018-07-05] MEDS: FUROSEMIDE 40 MG TAB PO SCH (06:52)
[2018-07-05] MEDS: SUCRALFATE 1 GM/10 ML ORAL SUSP GT SCH ×3 (06:52→17:00)
[2018-07-05] MEDS: GABAPENTIN 300 MG CAP PO SCH ×2 (06:52→14:00)
[2018-07-05 07:14] LABS: Calcium 8.4 mg/dL (8.5-10.1); Potassium 3.8 mmol/L (3.5-5.1)
[2018-07-05 07:17] LABS: BUN/Creatinine Ratio 13.9
[2018-07-05 08:39] VITALS: BP 135/66
[2018-07-05] MEDS: ENOXAPARIN SOD 40 MG/0.4 ML SYRINGE SC SCH (10:00)
[2018-07-05] MEDS: POTASSIUM CHLORIDE 8 MEQ TAB PO SCH (10:00)
[2018-07-05] MEDS: ASPirin-EC 81 mg tab PO SCH (10:00)
[2018-07-05] MEDS: PANTOPRAZOLE 40 MG TAB PO SCH (10:00)
[2018-07-05] MEDS: LOSARTAN POTASSIUM 50 MG TAB PO SCH (10:00)
[2018-07-05] MEDS: SODIUM CHLOR 0.9% PF (SALINE LOCK) 10ML VIAL/SYR IV SCH (10:00)
[2018-07-05] MEDS: CLOPIDOGREL BISULFATE 75 MG TAB PO SCH (10:00)
[2018-07-05] MEDS: ATENOLOL 50 MG TAB PO SCH (10:00)
[2018-07-05] MEDS: LEVOTHYROXINE SODIUM 50 MCG TAB PO SCH (10:00)
[2018-07-05 13:00] VITALS: BP 105/65
== END 2018-07-05 17:30 | disposition home or self-care (01) | DRG 720 ==
LOC: EDBD 14:15 → ER 14:15 → TELE 14:16 → ICU WEST 06-25 09:22 → TELE-CENTR 07-03 06:00
PROVIDERS: ADMIT Nurse Practitioner; ATTEND Internal Medicine
PROC: 5A1955Z Respiratory Ventilation, Greater than 96 Consecutive Hours (ICD-10-PCS; principal; 2018-06-24)
PROC: 0BH17EZ Insertion of Endotracheal Airway into Trachea, Via Natural or Artificial Opening (ICD-10-PCS; 2018-06-24)
PROC: 0B9F8ZX Drainage of Right Lower Lung Lobe, Via Natural or Artificial Opening Endoscopic, Diagnostic (ICD-10-PCS; 2018-06-26)
PROC: 02H633Z Insertion of Infusion Device into Right Atrium, Percutaneous Approach (ICD-10-PCS; 2018-06-26)
DX: A41.9 Sepsis, unspecified organism (principal); I21.4 Non-ST elevation (NSTEMI) myocardial infarction; J96.21 Acute and chronic respiratory failure with hypoxia; J69.0 Pneumonitis due to inhalation of food and vomit; G93.41 Metabolic encephalopathy; I50.33 Acute on chronic diastolic (congestive) heart failure; T17.890A Other foreign object in other parts of respiratory tract causing asphyxiation, initial encounter; J44.0 Chronic obstructive pulmonary disease with (acute) lower respiratory infection; J44.1 Chronic obstructive pulmonary disease with (acute) exacerbation; J98.19 Other pulmonary collapse; J96.22 Acute and chronic respiratory failure with hypercapnia; E78.5 Hyperlipidemia, unspecified; E66.01 Morbid (severe) obesity due to excess calories; F03.90 Unspecified dementia, unspecified severity, without behavioral disturbance, psychotic disturbance, mood disturbance, and anxiety; F17.200 Nicotine dependence, unspecified, uncomplicated; I11.0 Hypertensive heart disease with heart failure; I25.10 Atherosclerotic heart disease of native coronary artery without angina pectoris; I25.2 Old myocardial infarction; I70.8 Atherosclerosis of other arteries; K27.9 Peptic ulcer, site unspecified, unspecified as acute or chronic, without hemorrhage or perforation; K57.30 Diverticulosis of large intestine without perforation or abscess without bleeding; K76.0 Fatty (change of) liver, not elsewhere classified; M47.9 Spondylosis, unspecified; N28.1 Cyst of kidney, acquired; R65.20 Severe sepsis without septic shock; X58.XXXA Exposure to other specified factors, initial encounter; Y93.89 Activity, other specified; Y92.89 Other specified places as the place of occurrence of the external cause; Z74.01 Bed confinement status; Z80.49 Family history of malignant neoplasm of other genital organs; Z80.8 Family history of malignant neoplasm of other organs or systems; Z90.49 Acquired absence of other specified parts of digestive tract; Z90.710 Acquired absence of both cervix and uterus; Z98.61 Coronary angioplasty status; Z99.81 Dependence on supplemental oxygen; Z91.030 Bee allergy status; Z79.899 Other long term (current) drug therapy; Z79.82 Long term (current) use of aspirin; Z68.41 Body mass index [BMI] 40.0-44.9, adult
CPT/HCPCS: 31500; 31622; 36415; 36569; 36600; 70450; 71045; 71275; 74022; 74176; 80048; 80053; 80202; 81001; 82150; 82805; 82962; 83605; 83690; 83735; 83880; 84100; 84484; 85025; 85610; 85730; 87040; 87070; 87081; 87205; 93005; 94002; 94003; 94640; 94660; 94667; 94668; 96374; 96375; 97163; A6257; C9113; J0171; J0330; J0696; J1815; J2001; J2250; J2405; J2543; J3480

== ENCOUNTER 2019-12-09 23:14 | Inpatient (IN) | payer MEDICARE, MEDICAID ==
[~2019-12-09] VITALS: Ht 165.1 cm; Wt 87.0 kg
[~2019-12-09 23:14] MED LIST changes: +ACE1030 IN; +ASPI-404 PO; -ASPI81TA27 PO; -ATEN50TA PO; -BACL10TA PO; +DOCU1CAP46 PO; -DOCU1CAP54 PO; +FAMO-12 PO; -HYDR-4683 PO; +LORA2TAB89 PO; -LOSA-46 PO; -LOVA20TA4 PO; -MORP1TAB13 PO; -OMEP20CA74 PO; +ZOLP10TA PO
[2019-12-09] MEDS ORDERED: MIDAZOLAM DRIP 50 mg/50mL 50 ML IV ONE (23:20)
[2019-12-09] MEDS: MIDAZOLAM DRIP 50 mg/50mL 50 ML IV SCH (23:21)
[2019-12-09] MEDS ORDERED: cefTRIAXone 1GM/50ML D5W 50 ML IV ONE (23:30)
[2019-12-09] MEDS ORDERED: VANCOMYCIN 1GM/250ML 250 ML IV ONE (23:30)
[2019-12-09] MEDS ORDERED: SODIUM CHLORIDE 0.9% 2,000 ML IV ONE (23:30)
[2019-12-10] VITALS (12 sets, daily range): BP systolic 89–162; BP diastolic 34–71
[2019-12-10 00:02] LABS: Urine Bacteria FEW /hpf (None Seen); Urine Blood Negative /uL (Negative); Urine Hyaline Cast FEW /lpf (0 - 2); Urine Specific Gravity 1.006 (1.001-1.035); Urine WBC <1 /hpf (0 - 5)
[2019-12-10] MEDS ORDERED: NOREPINEPHRINE 8 MG/250ML KIT 250 ML IV ONE (00:03)
[2019-12-10] MEDS: NOREPINEPHRINE 8 MG/250ML KIT 250 ML IV SCH ×2 (00:15→23:55)
[2019-12-10 01:47] LABS: Hematocrit 43.5 % (36.0-46.0); Hemoglobin 14.1 g/dL (12.2-16.2); Mean Corpuscular Hemoglobin 28.3 pg (28.0-32.0); Mean Corpuscular Hgb Conc. 32.3 g/dL (32.0-36.0); Mean Corpuscular Volume 87.4 fL (80.0-100.0); Platelet Count (auto) 449 10^3/uL (140-450); Red Blood Cells 4.97 10^6/uL (4.0-5.20); Red Cell Distribution Width 15.9 % (11.8-14.3)
[2019-12-10 01:57] LABS: White Blood Cell 34.1 10^3/uL (4.4-10.8)
[2019-12-10 01:59] LABS: Basophils % (manual) 0 (0.0-2.0); Blast Cells 0; Eosinophils % (manual) 0 (0-7); Metamyelocytes % 0; Myelocytes % 0; Promyelocytes % 0; Reactive Lymphocytes 0
[2019-12-10 02:43] LABS: INR 1.04 (0.9-1.15); Partial Thromboplastin Time 27.1 sec (23.64-32.05)
[2019-12-10 02:46] LABS: Band Neutrophils % (manual) 32; Lymphocytes % (manual) 5 (10.0-50.0); Monocytes % (manual) 2 (0-12)
[2019-12-10 02:49] LABS: Hematocrit 41.9 % (36.0-46.0); Hemoglobin 13.1 g/dL (12.2-16.2); Mean Corpuscular Hemoglobin 27.5 pg (28.0-32.0); Mean Corpuscular Hgb Conc. 31.3 g/dL (32.0-36.0); Platelet Count (auto) 454 10^3/uL (140-450); Red Blood Cells 4.76 10^6/uL (4.0-5.20)
[2019-12-10 02:52] LABS: Basophils % (manual) 0 (0.0-2.0); Blast Cells 0; Eosinophils % (manual) 0 (0-7); Metamyelocytes % 0; Myelocytes % 0; Promyelocytes % 0; Reactive Lymphocytes 0
[2019-12-10] MEDS ORDERED: PIPERACILLIN-TAZOB 3.375GM 100 ML IV ONE (03:00)
[2019-12-10 03:07] LABS: Albumin 2.5 g/dL (3.4-5.0); Anion Gap 5 (5-15); Blood Urea Nitrogen 21 mg/dL (7-18); Calcium 7.7 mg/dL (8.5-10.1); Carbon Dioxide 28 mmol/L (21-32); Chloride 103 mmol/L (98-107); Glucose 114 mg/dL (74-106); Potassium 4.3 mmol/L (3.5-5.1); Sodium 136 mmol/L (136-145)
[2019-12-10 03:09] LABS: Alanine Aminotransferase 15 U/L (13-56); Aspartate Aminotransferase 24 U/L (15-37); BUN/Creatinine Ratio 10.5; GFR African American 32 mL/min; GFR Non-African American 27 mL/min
[2019-12-10 03:10] LABS: Lactic Acid w/Reflex 2.3 mmol/L (0.4-2.0)
[2019-12-10 03:11] LABS: INR 1.07 (0.9-1.15); Partial Thromboplastin Time 24.5 sec (23.64-32.05)
[2019-12-10 03:12] LABS: Alkaline Phosphatase 65 U/L (45-117); Bilirubin, Total 0.5 mg/dL (0.2-1.0); Total Protein 6.6 g/dL (6.4-8.2)
[2019-12-10] MEDS ORDERED: MORPHINE SULFATE 4 MG/ML SYR/VIAL IV PRN (04:00)
[2019-12-10] MEDS ORDERED: HYDROmorphone HCL 2 MG/ML VL IV PRN (04:00)
[2019-12-10] MEDS ORDERED: ONDANSETRON HCL 4 MG/2 ML VIAL IV PRN (04:00)
[2019-12-10] MEDS ORDERED: MORPHINE SULF INJ 2 MG/ML SYRINGE 1ML IV PRN (04:00)
[2019-12-10] MEDS ORDERED: NITROGLYCERIN 0.4 MG SL TAB SL PRN (04:00)
[2019-12-10 04:17] LABS: Band Neutrophils % (manual) 35; Lymphocytes % (manual) 3 (10.0-50.0); Monocytes % (manual) 2 (0-12)
[2019-12-10] MEDS ORDERED: ROCURONIUM 10MG/ML 10ML VIAL IV ONE ×2 (04:25→04:45)
[2019-12-10] MEDS ORDERED: SODIUM CHLORIDE 0.9% 1,000 ML IV ONE (05:40)
[2019-12-10] MEDS ORDERED: ACETAMINOPHEN 650 MG RECT SUPP PR PRN (05:45)
[2019-12-10] MEDS ORDERED: OSELTAMIVIR 30MG/5ML ORAL SUSP GT SCH ×2 (06:00→16:00)
[2019-12-10 07:29] LABS: Basophils # (auto) 0.1 uL; Eosinophils # (auto) 0 uL
[2019-12-10 07:31] LABS: Basophils % (auto) 0.4 % (0.0-2.0); Hematocrit 39.2 % (36.0-46.0); Hemoglobin 12.5 g/dL (12.2-16.2); Lymphocytes # (auto) 1.4 uL; Lymphocytes % (auto) 3.8 % (10.0-50.0); Mean Corpuscular Hemoglobin 27.8 pg (28.0-32.0); Mean Corpuscular Hgb Conc. 31.8 g/dL (32.0-36.0); Mean Corpuscular Volume 87.5 fL (80.0-100.0); Monocytes # (auto) 1.8 uL; Monocytes % (auto) 4.7 % (0.0-12.0); Neutrophils # (auto) 34.3 uL; Neutrophils % (auto) 91.1 % (37.0-80.0); Platelet Count (auto) 432 10^3/uL (140-450); Red Blood Cells 4.47 10^6/uL (4.0-5.20); Red Cell Distribution Width 16.3 % (11.8-14.3)
[2019-12-10 07:45] LABS: Calcium 7.6 mg/dL (8.5-10.1); Potassium 3.7 mmol/L (3.5-5.1)
[2019-12-10 07:46] LABS: White Blood Cell 37.6 10^3/uL (4.4-10.8)
[2019-12-10 07:50] LABS: BUN/Creatinine Ratio 15.4
[2019-12-10] MEDS: MIDAZOLAM DRIP 50 mg/50mL 50 ML IV SCH ×3 (11:08→21:05)
[2019-12-10] MEDS: PIPERACILLIN-TAZOB 3.375GM 100 ML IV SCH ×2 (12:14→20:15)
[2019-12-10] MEDS ORDERED: VANCOMYCIN PER PHARMACY 0 MG IV SCH (13:30)
[2019-12-10] MEDS ORDERED: PANTOPRAZOLE 40 MG/10 ML VIAL INJ IV ONE (13:30)
[2019-12-10] MEDS ORDERED: VANCOMYCIN 1GM/250ML 250 ML IV ONE (14:00)
[2019-12-10] MEDS: IPRATROPIUM BROM 0.5 MG/2.5ML INH SOL NEB SCH ×3 (14:47→22:12)
[2019-12-10] MEDS: ALBUTEROL SULF 2.5 MG/0.5ML(0.5%) NEB SOLN NEB SCH ×3 (14:47→22:12)
[2019-12-10] MEDS: VANCOMYCIN 1GM/250ML 250 ML IV SCH (15:23)
[2019-12-10] MEDS ORDERED: OSELTAMIVIR 75MG/5ML ORAL SUSP GT SCH (15:45)
[2019-12-10] MEDS ORDERED: ACETAMINOPHEN 650 mg PER 20 mL UD ONE (21:17)
[2019-12-10] MEDS: fentaNYL Drip 2500mCg/250mlNS 250 ML IV SCH (21:26)
[2019-12-10] MEDS ORDERED: fentaNYL Drip 2500mCg/250mlNS 250 ML IV ONE (21:35)
[2019-12-10] MEDS: METOPROLOL TARTRATE 1MG/1ML-5ML VIAL IV SCH (23:36)
[2019-12-11] VITALS (85 sets, daily range): BP systolic 84–154; BP diastolic 31–78
[2019-12-11] MEDS: MIDAZOLAM DRIP 50 mg/50mL 50 ML IV SCH ×5 (01:41→23:36)
[2019-12-11] MEDS: ALBUTEROL SULF 2.5 MG/0.5ML(0.5%) NEB SOLN NEB SCH ×6 (01:45→22:43)
[2019-12-11] MEDS: IPRATROPIUM BROM 0.5 MG/2.5ML INH SOL NEB SCH ×6 (01:45→22:43)
[2019-12-11] MEDS: PIPERACILLIN-TAZOB 3.375GM 100 ML IV SCH ×3 (04:00→20:00)
[2019-12-11] MEDS: VANCOMYCIN 1GM/250ML 250 ML IV SCH ×2 (05:00→19:00)
[2019-12-11] MEDS: METOPROLOL TARTRATE 1MG/1ML-5ML VIAL IV SCH ×4 (05:51→23:38)
[2019-12-11] MEDS ORDERED: OSELTAMIVIR 30MG/5ML ORAL SUSP GT SCH (06:00)
[2019-12-11 08:18] LABS: Basophils # (auto) 0.1 uL; Basophils % (auto) 0.5 % (0.0-2.0); Eosinophils # (auto) 0.6 uL; Eosinophils % (auto) 3.1 % (0.0-7.0); Hematocrit 32.8 % (36.0-46.0); Hemoglobin 10.6 g/dL (12.2-16.2); Lymphocytes # (auto) 1.7 uL; Lymphocytes % (auto) 8.8 % (10.0-50.0); Mean Corpuscular Hemoglobin 27.9 pg (28.0-32.0); Mean Corpuscular Hgb Conc. 32.3 g/dL (32.0-36.0); Mean Corpuscular Volume 86.4 fL (80.0-100.0); Monocytes # (auto) 0.8 uL; Monocytes % (auto) 4.3 % (0.0-12.0); Neutrophils # (auto) 15.6 uL; Neutrophils % (auto) 83.3 % (37.0-80.0); Platelet Count (auto) 309 10^3/uL (140-450); Red Cell Distribution Width 16.2 % (11.8-14.3); White Blood Cell 18.7 10^3/uL (4.4-10.8)
[2019-12-11 08:52] LABS: Albumin 1.9 g/dL (3.4-5.0); Calcium 8.1 mg/dL (8.5-10.1); Potassium 3.2 mmol/L (3.5-5.1)
[2019-12-11 09:01] LABS: Bilirubin, Total 0.2 mg/dL (0.2-1.0); Total Protein 5.5 g/dL (6.4-8.2)
[2019-12-11] MEDS: PANTOPRAZOLE 40 MG/10 ML VIAL INJ IV SCH (10:00)
[2019-12-11] MEDS: POTASSIUM CHL 20MEQ/100ML 100 ML IV SCH ×2 (10:12→12:15)
[2019-12-11] MEDS ORDERED: OPTISON 3ml Vial for INJ IV ONE (10:36)
[2019-12-11] MEDS ORDERED: OSELTAMIVIR 75MG/5ML ORAL SUSP GT SCH (18:00)
[2019-12-11] MEDS: methylPREDNISolone SOD SUCC 125 MG/2 ML VL IV SCH (21:17)
[2019-12-11] MEDS: fentaNYL Drip 2500mCg/250mlNS 250 ML IV SCH (21:18)
[2019-12-11] MEDS: NYSTATIN TOPICAL POWDER 15GM TOP SCH (22:00)
[2019-12-11] MEDS: NOREPINEPHRINE 8 MG/250ML KIT 250 ML IV SCH (23:55)
[2019-12-12] VITALS (97 sets, daily range): BP systolic 14–194; BP diastolic 49–106
[2019-12-12] MEDS: ALBUTEROL SULF 2.5 MG/0.5ML(0.5%) NEB SOLN NEB SCH ×6 (02:35→22:03)
[2019-12-12] MEDS: IPRATROPIUM BROM 0.5 MG/2.5ML INH SOL NEB SCH ×6 (02:35→22:03)
[2019-12-12] MEDS: MIDAZOLAM DRIP 50 mg/50mL 50 ML IV SCH (03:05)
[2019-12-12 03:50] LABS: Basophils # (auto) 0 uL; Basophils % (auto) 0.1 % (0.0-2.0); Eosinophils # (auto) 0 uL; Eosinophils % (auto) 0.1 % (0.0-7.0); Hematocrit 33.2 % (36.0-46.0); Hemoglobin 10.7 g/dL (12.2-16.2); Lymphocytes # (auto) 0.6 uL; Lymphocytes % (auto) 4.6 % (10.0-50.0); Mean Corpuscular Hgb Conc. 32.3 g/dL (32.0-36.0); Mean Corpuscular Volume 86.7 fL (80.0-100.0); Monocytes # (auto) 0.1 uL; Monocytes % (auto) 0.7 % (0.0-12.0); Neutrophils # (auto) 12.7 uL; Neutrophils % (auto) 94.5 % (37.0-80.0); Platelet Count (auto) 360 10^3/uL (140-450); Red Blood Cells 3.83 10^6/uL (4.0-5.20); Red Cell Distribution Width 16.4 % (11.8-14.3); White Blood Cell 13.5 10^3/uL (4.4-10.8)
[2019-12-12] MEDS: PIPERACILLIN-TAZOB 3.375GM 100 ML IV SCH ×3 (04:00→20:00)
[2019-12-12 04:27] LABS: Potassium 3.9 mmol/L (3.5-5.1)
[2019-12-12 04:30] LABS: BUN/Creatinine Ratio 14.5; Bilirubin, Total 0.3 mg/dL (0.2-1.0); Total Protein 6.1 g/dL (6.4-8.2)
[2019-12-12] MEDS: METOPROLOL TARTRATE 1MG/1ML-5ML VIAL IV SCH ×4 (05:58→22:50)
[2019-12-12] MEDS: methylPREDNISolone SOD SUCC 125 MG/2 ML VL IV SCH ×3 (06:01→22:00)
[2019-12-12] MEDS: VANCOMYCIN 1GM/250ML 250 ML IV SCH ×2 (08:54→22:49)
[2019-12-12] MEDS: PANTOPRAZOLE 40 MG/10 ML VIAL INJ IV SCH (09:57)
[2019-12-12] MEDS: ENOXAPARIN SOD 30 MG/0.3 ML SYRINGE SC SCH (09:58)
[2019-12-12] MEDS: NYSTATIN TOPICAL POWDER 15GM TOP SCH ×2 (09:58→22:00)
[2019-12-12] MEDS ORDERED: LABETALOL HCL 5 MG/ML 4ML SYRINGE IV PRN (13:00)
[2019-12-12] MEDS ORDERED: hydrALAZINE HCL 20 MG/ML VL ONE (13:58)
[2019-12-12] MEDS ORDERED: hydrALAZINE HCL 20 MG/ML VL IV ONE (14:15)
[2019-12-12] MEDS: DexMEDEtomidine 400 MCG in D5W 5% 96 ML IV SCH ×2 (16:27→18:44)
[2019-12-12] MEDS: OSELTAMIVIR 75MG/5ML ORAL SUSP GT SCH (16:57)
[2019-12-12] MEDS ORDERED: FUROSEMIDE 40 MG/4 ML VIAL IV ONE (17:00)
[2019-12-12] MEDS: LABETALOL HCL 5 MG/ML ML 20ML VIAL IV PRN (18:14)
[2019-12-12] MEDS: fentaNYL Drip 2500mCg/250mlNS 250 ML IV SCH (18:44)
[2019-12-12] MEDS: NOREPINEPHRINE 8 MG/250ML KIT 250 ML IV SCH (23:55)
[2019-12-13] VITALS (72 sets, daily range): BP systolic 115–208; BP diastolic 45–83
[2019-12-13] MEDS: LABETALOL HCL 5 MG/ML ML 20ML VIAL IV PRN ×2 (00:22→09:10)
[2019-12-13] MEDS ORDERED: hydrALAZINE HCL 20 MG/ML VL ONE (01:45)
[2019-12-13] MEDS: IPRATROPIUM BROM 0.5 MG/2.5ML INH SOL NEB SCH ×6 (02:23→22:04)
[2019-12-13] MEDS: ALBUTEROL SULF 2.5 MG/0.5ML(0.5%) NEB SOLN NEB SCH ×6 (02:23→22:04)
[2019-12-13] MEDS: PIPERACILLIN-TAZOB 3.375GM 100 ML IV SCH ×2 (04:00→12:24)
[2019-12-13] MEDS: OSELTAMIVIR 75MG/5ML ORAL SUSP GT SCH ×2 (04:00→16:25)
[2019-12-13 04:48] LABS: Basophils # (auto) 0 uL; Basophils % (auto) 0.2 % (0.0-2.0); Eosinophils # (auto) 0 uL; Eosinophils % (auto) 0.1 % (0.0-7.0); Hematocrit 36.5 % (36.0-46.0); Lymphocytes # (auto) 0.7 uL; Lymphocytes % (auto) 7.2 % (10.0-50.0); Mean Corpuscular Hemoglobin 28.1 pg (28.0-32.0); Mean Corpuscular Volume 85.3 fL (80.0-100.0); Monocytes # (auto) 0.2 uL; Monocytes % (auto) 1.8 % (0.0-12.0); Neutrophils # (auto) 8.7 uL; Neutrophils % (auto) 90.7 % (37.0-80.0); Platelet Count (auto) 389 10^3/uL (140-450); Red Blood Cells 4.27 10^6/uL (4.0-5.20); Red Cell Distribution Width 16.1 % (11.8-14.3); White Blood Cell 9.6 10^3/uL (4.4-10.8)
[2019-12-13 04:53] LABS: Albumin 2.2 g/dL (3.4-5.0); Calcium 8.3 mg/dL (8.5-10.1)
[2019-12-13 04:56] LABS: BUN/Creatinine Ratio 20.3; Bilirubin, Total 0.2 mg/dL (0.2-1.0); Total Protein 6.6 g/dL (6.4-8.2)
[2019-12-13 05:22] LABS: Potassium 2.6 mmol/L (3.5-5.1)
[2019-12-13] MEDS: methylPREDNISolone SOD SUCC 125 MG/2 ML VL IV SCH ×3 (06:00→22:44)
[2019-12-13] MEDS: METOPROLOL TARTRATE 1MG/1ML-5ML VIAL IV SCH ×3 (06:01→17:40)
[2019-12-13] MEDS: hydrALAZINE HCL 20 MG/ML VL IV SCH ×3 (06:02→17:57)
[2019-12-13] MEDS: POTASSIUM CHL 20MEQ/100ML 100 ML IV SCH ×3 (06:23→09:10)
[2019-12-13] MEDS: DexMEDEtomidine 400 MCG in D5W 5% 96 ML IV SCH (07:15)
[2019-12-13] MEDS: PANTOPRAZOLE 40 MG/10 ML VIAL INJ IV SCH (10:00)
[2019-12-13] MEDS: ENOXAPARIN SOD 30 MG/0.3 ML SYRINGE SC SCH (10:00)
[2019-12-13] MEDS: NYSTATIN TOPICAL POWDER 15GM TOP SCH ×2 (10:29→22:00)
[2019-12-13] MEDS: VANCOMYCIN 1GM/250ML 250 ML IV SCH (13:22)
[2019-12-13] MEDS ORDERED: BUMETANIDE 2.5mg/10ml (0.25 mg/ml) INJ IV ONE (13:45)
[2019-12-13] MEDS ORDERED: POTASSIUM EFFERVESENT TAB 25 MEQ GT ONE (14:45)
[2019-12-13] MEDS ORDERED: POTASSIUM CHL 20MEQ/100ML 100 ML IV SCH (20:00)
[2019-12-13] MEDS ORDERED: POTASSIUM CHLORIDE 40 MEQ, LIDOCAINE 1% (LOCAL ANESTH.) 4 ML in SODIUM CHL 0.9% 100 ML IV ONE (20:00)
[2019-12-13] MEDS ORDERED: POTASSIUM CHL 20MEQ/100ML 100 ML IV ONE ×2 (20:11→22:04)
[2019-12-14] VITALS (7 sets, daily range): BP systolic 140–167; BP diastolic 56–83
[2019-12-14] MEDS: METOPROLOL TARTRATE 1MG/1ML-5ML VIAL IV SCH ×5 (01:07→23:57)
[2019-12-14] MEDS: hydrALAZINE HCL 20 MG/ML VL IV SCH ×5 (01:07→23:57)
[2019-12-14] MEDS: IPRATROPIUM BROM 0.5 MG/2.5ML INH SOL NEB SCH ×6 (02:40→22:12)
[2019-12-14] MEDS: ALBUTEROL SULF 2.5 MG/0.5ML(0.5%) NEB SOLN NEB SCH ×6 (02:40→22:12)
[2019-12-14] MEDS ORDERED: TEMAZEPAM 15 MG CAP PO ONE ×2 (03:00→23:00)
[2019-12-14 03:49] LABS: Hematocrit 40.4 % (36.0-46.0); Hemoglobin 13.4 g/dL (12.2-16.2); Mean Corpuscular Hemoglobin 28.1 pg (28.0-32.0); Mean Corpuscular Hgb Conc. 33.1 g/dL (32.0-36.0); Mean Corpuscular Volume 84.8 fL (80.0-100.0); Platelet Count (auto) 448 10^3/uL (140-450); Red Blood Cells 4.77 10^6/uL (4.0-5.20); Red Cell Distribution Width 16.3 % (11.8-14.3)
[2019-12-14] MEDS: OSELTAMIVIR 75MG/5ML ORAL SUSP GT SCH ×2 (03:58→17:32)
[2019-12-14 04:06] LABS: Albumin 2.5 g/dL (3.4-5.0); Calcium 8.6 mg/dL (8.5-10.1); Potassium 3.4 mmol/L (3.5-5.1)
[2019-12-14 04:10] LABS: BUN/Creatinine Ratio 25.7; Bilirubin, Total 0.4 mg/dL (0.2-1.0)
[2019-12-14 04:21] LABS: Band Neutrophils % (manual) 0; Basophils % (manual) 0 (0.0-2.0); Blast Cells 0; Eosinophils % (manual) 0 (0-7); Metamyelocytes % 0; Myelocytes % 0; Promyelocytes % 0; Reactive Lymphocytes 0
[2019-12-14] MEDS: methylPREDNISolone SOD SUCC 125 MG/2 ML VL IV SCH ×3 (05:53→23:55)
[2019-12-14] MEDS: ACETAMINOPHEN 650 mg PER 20 mL UD GT PRN ×2 (06:31→19:14)
[2019-12-14 07:53] LABS: Lymphocytes % (manual) 6 (10.0-50.0); Monocytes % (manual) 1 (0-12)
[2019-12-14] MEDS: HYDROmorphone HCL 2 MG/ML VL IV PRN ×4 (08:03→22:31)
[2019-12-14] MEDS ORDERED: BUMETANIDE 2.5mg/10ml (0.25 mg/ml) INJ IV ONE (10:00)
[2019-12-14] MEDS: cefTRIAXone 1GM/50ML D5W 50 ML IV SCH (10:28)
[2019-12-14] MEDS: ENOXAPARIN SOD 40 MG/0.4 ML SYRINGE SC SCH (10:30)
[2019-12-14] MEDS: PANTOPRAZOLE 40 MG/10 ML VIAL INJ IV SCH (10:30)
[2019-12-14] MEDS: NYSTATIN TOPICAL POWDER 15GM TOP SCH ×2 (10:31→22:31)
[2019-12-14] MEDS ORDERED: IOHEXOL 350 MG/ML 100ML IJ ONE (10:48)
[2019-12-14] MEDS ORDERED: POTASSIUM CHLORIDE 40 MEQ, LIDOCAINE 1% (LOCAL ANESTH.) 4 ML in SODIUM CHL 0.9% 100 ML IV ONE (20:00)
[2019-12-14] MEDS: LABETALOL HCL 5 MG/ML ML 20ML VIAL IV PRN (20:17)
[2019-12-15] MEDS: ACETAMINOPHEN 650 mg PER 20 mL UD GT PRN (01:39)
[2019-12-15] MEDS: ALBUTEROL SULF 2.5 MG/0.5ML(0.5%) NEB SOLN NEB SCH ×3 (02:08→09:45)
[2019-12-15] MEDS: IPRATROPIUM BROM 0.5 MG/2.5ML INH SOL NEB SCH ×3 (02:08→09:45)
[2019-12-15] MEDS: HYDROmorphone HCL 2 MG/ML VL IV PRN ×2 (03:02→07:01)
[2019-12-15] MEDS: OSELTAMIVIR 75MG/5ML ORAL SUSP GT SCH (04:19)
[2019-12-15 05:00] VITALS: BP 160/70
[2019-12-15] MEDS: methylPREDNISolone SOD SUCC 125 MG/2 ML VL IV SCH (05:33)
[2019-12-15] MEDS: hydrALAZINE HCL 20 MG/ML VL IV SCH ×2 (05:33→11:41)
[2019-12-15] MEDS: METOPROLOL TARTRATE 1MG/1ML-5ML VIAL IV SCH ×2 (05:33→11:46)
[2019-12-15 06:14] LABS: Hemoglobin 13.7 g/dL (12.2-16.2)
[2019-12-15 06:16] LABS: Hematocrit 41.1 % (36.0-46.0); Mean Corpuscular Hemoglobin 28.6 pg (28.0-32.0); Mean Corpuscular Hgb Conc. 33.4 g/dL (32.0-36.0); Mean Corpuscular Volume 85.5 fL (80.0-100.0); Platelet Count (auto) 455 10^3/uL (140-450); White Blood Cell 8.9 10^3/uL (4.4-10.8)
[2019-12-15 06:22] LABS: Albumin 2.7 g/dL (3.4-5.0); Band Neutrophils % (manual) 0; Basophils % (manual) 0 (0.0-2.0); Blast Cells 0; Calcium 8.5 mg/dL (8.5-10.1); Eosinophils % (manual) 0 (0-7); Metamyelocytes % 0; Myelocytes % 0; Potassium 3.5 mmol/L (3.5-5.1); Promyelocytes % 0; Reactive Lymphocytes 0
[2019-12-15 06:28] LABS: BUN/Creatinine Ratio 29.5; Bilirubin, Total 0.4 mg/dL (0.2-1.0); Total Protein 6.5 g/dL (6.4-8.2)
[2019-12-15 06:48] LABS: Lymphocytes % (manual) 8 (10.0-50.0); Monocytes % (manual) 7 (0-12)
[2019-12-15 09:00] VITALS: BP 114/69
[2019-12-15] MEDS: cefTRIAXone 1GM/50ML D5W 50 ML IV SCH (09:00)
[2019-12-15] MEDS: PANTOPRAZOLE 40 MG/10 ML VIAL INJ IV SCH (10:10)
[2019-12-15] MEDS: ENOXAPARIN SOD 40 MG/0.4 ML SYRINGE SC SCH (10:10)
[2019-12-15] MEDS: NYSTATIN TOPICAL POWDER 15GM TOP SCH (10:10)
[2019-12-15 11:25] VITALS: BP 133/88
[2019-12-15 11:56] VITALS: BP 133/88
[2019-12-15] MEDS ORDERED: POTASSIUM CHLORIDE 40 MEQ, LIDOCAINE 1% (LOCAL ANESTH.) 4 ML in SODIUM CHL 0.9% 100 ML IV ONE (20:00)
== END 2019-12-15 13:40 | disposition hospice, home (50) | DRG 871 ==
LOC: ER 23:14 → EDBD 23:14 → TELE 23:15 → ICU WEST 12-11 03:40 → TELE-EAST 12-14 01:35
PROVIDERS: ADMIT Hospitalist; ATTEND Family Medicine
PROC: 5A1945Z Respiratory Ventilation, 24-96 Consecutive Hours (ICD-10-PCS; principal; 2019-12-10)
PROC: 0BH17EZ Insertion of Endotracheal Airway into Trachea, Via Natural or Artificial Opening (ICD-10-PCS; 2019-12-10)
PROC: 02HV33Z Insertion of Infusion Device into Superior Vena Cava, Percutaneous Approach (ICD-10-PCS; 2019-12-10)
DX: A40.3 Sepsis due to Streptococcus pneumoniae (principal); R65.21 Severe sepsis with septic shock; J96.22 Acute and chronic respiratory failure with hypercapnia; J96.21 Acute and chronic respiratory failure with hypoxia; I50.33 Acute on chronic diastolic (congestive) heart failure; J10.08 Influenza due to other identified influenza virus with other specified pneumonia; J15.4 Pneumonia due to other streptococci; E87.2 Acidosis; I47.2 Ventricular tachycardia; J44.0 Chronic obstructive pulmonary disease with (acute) lower respiratory infection; E87.4 Mixed disorder of acid-base balance; J44.1 Chronic obstructive pulmonary disease with (acute) exacerbation; E78.5 Hyperlipidemia, unspecified; E78.00 Pure hypercholesterolemia, unspecified; F41.9 Anxiety disorder, unspecified; G47.30 Sleep apnea, unspecified; I11.0 Hypertensive heart disease with heart failure; J20.9 Acute bronchitis, unspecified; E66.01 Morbid (severe) obesity due to excess calories; K21.9 Gastro-esophageal reflux disease without esophagitis; G62.9 Polyneuropathy, unspecified; Z95.5 Presence of coronary angioplasty implant and graft; Z91.030 Bee allergy status; I25.2 Old myocardial infarction; Z90.49 Acquired absence of other specified parts of digestive tract; Z90.710 Acquired absence of both cervix and uterus; Z79.899 Other long term (current) drug therapy; Z68.31 Body mass index [BMI] 31.0-31.9, adult
CPT/HCPCS: 31500; 36415; 36600; 51702; 71045; 71275; 80048; 80053; 80061; 80202; 81001; 82805; 83605; 83880; 84132; 84443; 84484; 85007; 85025; 85027; 85379; 85610; 85730; 87040; 87070; 87077; 87081; 87186; 87205; 87804; 92610; 93005; 93306; 93970; 94002; 94003; 94640; 96365; 96367; 96368; 97163; C9113; G0378; G9035; J0696; J2001; J2250; J2543; J3480; J7060; Q9956